=== PATIENT | male | born 1950 | race Caucasian/White ===

== ENCOUNTER 2019-11-12 07:29 | Outpatient (CLI) | payer MEDICARE, OTHER, SELFPAY ==
[2019-11-12 07:58] LABS: Absolute Basophil Count 0.01 k/cumm (0.0-0.2); Absolute Eosinophil Count 0.08 k/cumm (0.0-0.7); Absolute Lymphocyte Count 1.48 k/cumm (1.2-3.4); Absolute Monocyte Count 0.23 k/cumm (0.11-0.7); Basophils % 0.5; Eosinophils % 4.4; HCT 31.1 % (40.0-50.0); HGB 9.7 g/dL (13.5-17.5); Lymphocytes % 81.3; Mean Corp. HGB Concentration 31.2 g/dL (32.0-36.0); Mean Corpuscular Hemoglobin 27.6 pg (27.0-33.0); Mean Corpuscular Volume 88.4 fL (80-95); Mean Platelet Volume 8.5 fL (8.0-11.0); Monocytes % 12.6; Neutrophils % 1.2; Platelet Count 237 x1000/uL (130-400); RBC 3.52 m/cumm (4.50-6.00)
[2019-11-12 08:13] LABS: ALT 25 U/L (16-63); AST 16 U/L (15-37); Albumin 2.9 g/dL (3.4-5.0); Alkaline Phosphatase 74 U/L (46-116); Anion Gap 6.6 mmol/L (3-11); BUN 10 mg/dL (7-18); Bilirubin, Total 0.2 mg/dL (0.2-1.0); CO2 29.4 mmol/L (21.0-32.0); CREATININE 1.01 mg/dL (0.70-1.30); Calcium 9.4 mg/dL (8.5-10.1); Chloride 105 mmol/L (98-107); Glucose 97 mg/dL (74-106); Magnesium 1.8 mg/dL (1.8-2.4); PHOSPHORUS 3.4 mg/dL (2.6-4.7); Sodium 141 mmol/L (136-145); Total Protein 8.1 g/dL (6.4-8.2); Uric Acid 3.5 mg/dL (3.5-7.2)
[2019-11-12 08:23] LABS: Absolute Neutrophil Count 0.02 k/cumm (1.2-6.7)
[2019-11-12 08:24] LABS: Anisocytosis 1+; Polychromasia Present; White Blood Cell Count 1.82 k/cumm (4.4-10.8)
[2019-11-12 08:25] LABS: Diff Comment Agrees w/ Instrument
[2019-11-12 08:52] LABS: ESR 110 mm/hr (1-20)
== END 2019-11-12 07:49 ==
PROVIDERS: PCP Family Medicine; Visit Provider Internal Medicine Hematology & Oncology
DX: C81.18 Nodular sclerosis Hodgkin lymphoma, lymph nodes of multiple sites (principal)
CPT/HCPCS: 36415; 80053; 85652; 83735; 84100; 84550; 85025

== ENCOUNTER 2019-12-17 01:23 | Outpatient (RCR) | payer MEDICARE, OTHER, SELFPAY ==
[2019-12-03 08:05] LABS: HCT 30.1 % (40.0-50.0); HGB 9.5 g/dL (13.5-17.5); Mean Corp. HGB Concentration 31.6 g/dL (32.0-36.0); Mean Corpuscular Hemoglobin 28.4 pg (27.0-33.0); Mean Corpuscular Volume 89.9 fL (80-95); Mean Platelet Volume 8.8 fL (8.0-11.0); Platelet Count 257 x1000/uL (130-400); RBC 3.35 m/cumm (4.50-6.00); RBC Distribution Width 21.9 % (11.8-14.1); White Blood Cell Count 5.94 k/cumm (4.4-10.8)
[2019-12-03] MEDS: Normal Saline Flush 10 ML SYR IVP (08:07)
[2019-12-03 08:24] LABS: ALT 23 U/L (16-63); AST 26 U/L (15-37); Albumin 3.2 g/dL (3.4-5.0); Alkaline Phosphatase 61 U/L (46-116); Anion Gap 8.5 mmol/L (3-11); BUN 15 mg/dL (7-18); Bilirubin, Total 0.3 mg/dL (0.2-1.0); CO2 26.5 mmol/L (21.0-32.0); CREATININE 1.28 mg/dL (0.70-1.30); Calcium 9.4 mg/dL (8.5-10.1); Chloride 102 mmol/L (98-107); Estimated GFR 55.89 (mL/min/1.73m2); Glucose 97 mg/dL (74-106); Potassium 4.2 mmol/L (3.5-5.1); Sodium 137 mmol/L (136-145); Total Protein 8.4 g/dL (6.4-8.2)
[2019-12-03 08:28] LABS: Absolute Eosinophil Count 0.06 k/cumm (0.0-0.7); Absolute Lymphocyte Count 1.66 k/cumm (1.2-3.4); Absolute Monocyte Count 0.95 k/cumm (0.11-0.7); Absolute Neutrophil Count 3.03 k/cumm (1.2-6.7)
[2019-12-03 08:29] LABS: Anisocytosis 2+; Diff Comment Manual Differential; Hypochromasia 1+; Microcytosis 1+; Polychromasia Present
[2019-12-03 09:04] LABS: ESR 113 mm/hr (1-20)
[2019-12-17] MEDS: Normal Saline Flush 10 ML SYR IVP (08:56)
[2019-12-17 09:04] LABS: Abs Immature Grans 0.22 k/cumm (0.0-0.09); HCT 29.8 % (40.0-50.0); HGB 9.5 g/dL (13.5-17.5); Mean Corp. HGB Concentration 31.9 g/dL (32.0-36.0); Mean Corpuscular Hemoglobin 29.5 pg (27.0-33.0); Mean Corpuscular Volume 92.5 fL (80-95); Mean Platelet Volume 9.6 fL (8.0-11.0); Platelet Count 271 x1000/uL (130-400); RBC 3.22 m/cumm (4.50-6.00); RBC Distribution Width 22.8 % (11.8-14.1); White Blood Cell Count 5.72 k/cumm (4.4-10.8)
[2019-12-17 09:30] LABS: ALT 25 U/L (16-63); AST 19 U/L (15-37); Albumin 3.3 g/dL (3.4-5.0); Alkaline Phosphatase 59 U/L (46-116); Anion Gap 6.6 mmol/L (3-11); BUN 18 mg/dL (7-18); Bilirubin, Total 0.2 mg/dL (0.2-1.0); CO2 28.4 mmol/L (21.0-32.0); CREATININE 1.07 mg/dL (0.70-1.30); Calcium 9.3 mg/dL (8.5-10.1); Chloride 105 mmol/L (98-107); Glucose 107 mg/dL (74-106); Potassium 3.9 mmol/L (3.5-5.1); Sodium 140 mmol/L (136-145)
[2019-12-17 09:34] LABS: Absolute Eosinophil Count 0.23 k/cumm (0.0-0.7); Absolute Neutrophil Count 3.26 k/cumm (1.2-6.7)
[2019-12-17 09:36] LABS: Anisocytosis 2+; Diff Comment Manual Differential; Hypochromasia 1+; Polychromasia Present
[2019-12-17 09:37] LABS: Poikilocytes 2+
== END 2019-12-22 23:59 | disposition home or self-care (01) ==
LOC: INF 01:23
PROVIDERS: PCP Family Medicine; Visit Provider Internal Medicine Hematology & Oncology
DX: C81.18 Nodular sclerosis Hodgkin lymphoma, lymph nodes of multiple sites (principal); Z45.2 Encounter for adjustment and management of vascular access device
CPT/HCPCS: 36591; 80053; 85652; 85025

== ENCOUNTER 2020-01-14 00:54 | Outpatient (RCR) | payer MEDICARE, OTHER, SELFPAY ==
[2019-12-31] MEDS: Normal Saline Flush 10 ML SYR IVP (09:03)
[2019-12-31 09:19] LABS: ALT 23 U/L (16-63); AST 20 U/L (15-37); Alkaline Phosphatase 52 U/L (46-116); BUN 15 mg/dL (7-18); Bilirubin, Total 0.2 mg/dL (0.2-1.0); CREATININE 0.99 mg/dL (0.70-1.30); Calcium 8.7 mg/dL (8.5-10.1); Chloride 108 mmol/L (98-107); Glucose 150 mg/dL (74-106); Potassium 3.6 mmol/L (3.5-5.1); Sodium 142 mmol/L (136-145); Total Protein 7.2 g/dL (6.4-8.2)
[2019-12-31 09:30] LABS: Abs Immature Grans 0.23 k/cumm (0.0-0.09); HGB 9.1 g/dL (13.5-17.5); Mean Corp. HGB Concentration 32.5 g/dL (32.0-36.0); Mean Corpuscular Hemoglobin 30.2 pg (27.0-33.0); Mean Platelet Volume 9.7 fL (8.0-11.0); Platelet Count 244 x1000/uL (130-400); RBC 3.01 m/cumm (4.50-6.00); RBC Distribution Width 22.9 % (11.8-14.1)
[2019-12-31 09:33] LABS: Absolute Lymphocyte Count 1.48 k/cumm (1.2-3.4); Atypical Lymphocytes % 1; Diff Comment Manual Differential
[2019-12-31 09:34] LABS: Anisocytosis 2+; Hypochromasia 1+; Macrocytosis 1+; Microcytosis 1+; Poikilocytes 1+; Polychromasia Present
[2019-12-31 10:29] LABS: ESR 60 mm/hr (1-20)
[2020-01-14] MEDS: Normal Saline Flush 10 ML SYR IVP (09:08)
[2020-01-14 09:14] LABS: Abs Immature Grans 0.46 k/cumm (0.0-0.09); Absolute Eosinophil Count 0.08 k/cumm (0.0-0.7); HCT 29.5 % (40.0-50.0); HGB 9.4 g/dL (13.5-17.5); Mean Corp. HGB Concentration 31.9 g/dL (32.0-36.0); Mean Corpuscular Hemoglobin 30.1 pg (27.0-33.0); Mean Corpuscular Volume 94.6 fL (80-95); Mean Platelet Volume 9.6 fL (8.0-11.0); Platelet Count 259 x1000/uL (130-400); RBC 3.12 m/cumm (4.50-6.00); RBC Distribution Width 22.8 % (11.8-14.1); White Blood Cell Count 7.76 k/cumm (4.4-10.8)
[2020-01-14 09:26] LABS: ALT 24 U/L (16-63); AST 21 U/L (15-37); Albumin 3.3 g/dL (3.4-5.0); Alkaline Phosphatase 55 U/L (46-116); Anion Gap 6.6 mmol/L (3-11); BUN 14 mg/dL (7-18); Bilirubin, Total 0.3 mg/dL (0.2-1.0); CO2 27.4 mmol/L (21.0-32.0); CREATININE 0.97 mg/dL (0.70-1.30); Calcium 8.9 mg/dL (8.5-10.1); Chloride 105 mmol/L (98-107); Glucose 95 mg/dL (74-106); Potassium 3.8 mmol/L (3.5-5.1); Sodium 139 mmol/L (136-145); Total Protein 7.5 g/dL (6.4-8.2)
[2020-01-14 09:35] LABS: Absolute Lymphocyte Count 1.47 k/cumm (1.2-3.4); Absolute Monocyte Count 1.09 k/cumm (0.11-0.7); Absolute Neutrophil Count 4.73 k/cumm (1.2-6.7); Anisocytosis 2+; Diff Comment Manual Differential; Nucleated RBC 1 /100WBC
[2020-01-14 09:36] LABS: Polychromasia Present
== END 2020-01-21 23:59 | disposition home or self-care (01) ==
LOC: INF 00:54
PROVIDERS: PCP Family Medicine; Visit Provider Internal Medicine Hematology & Oncology
DX: C81.18 Nodular sclerosis Hodgkin lymphoma, lymph nodes of multiple sites (principal); Z45.2 Encounter for adjustment and management of vascular access device
CPT/HCPCS: 36591; 80053; 85652; 85025

== ENCOUNTER 2020-02-11 03:15 | Outpatient (RCR) | payer MEDICARE, OTHER, SELFPAY ==
[2020-01-28 09:32] LABS: Abs Immature Grans 0.04 k/cumm (0.0-0.09); Absolute Basophil Count 0.04 k/cumm (0.0-0.2); Absolute Eosinophil Count 0.09 k/cumm (0.0-0.7); Absolute Lymphocyte Count 1.35 k/cumm (1.2-3.4); Absolute Monocyte Count 0.69 k/cumm (0.11-0.7); Absolute Neutrophil Count 1.27 k/cumm (1.2-6.7); Basophils % 1.1; Eosinophils % 2.6; HCT 28.4 % (40.0-50.0); HGB 9.2 g/dL (13.5-17.5); Immature Grans % 1.1 %; Lymphocytes % 38.8; Mean Corp. HGB Concentration 32.4 g/dL (32.0-36.0); Mean Corpuscular Hemoglobin 31.2 pg (27.0-33.0); Mean Corpuscular Volume 96.3 fL (80-95); Mean Platelet Volume 8.9 fL (8.0-11.0); Monocytes % 19.8; Neutrophils % 36.6; Platelet Count 252 x1000/uL (130-400); RBC 2.95 m/cumm (4.50-6.00); RBC Distribution Width 22.3 % (11.8-14.1); White Blood Cell Count 3.48 k/cumm (4.4-10.8)
[2020-01-28 09:47] LABS: ALT 22 U/L (16-63); AST 20 U/L (15-37); Albumin 3.3 g/dL (3.4-5.0); Alkaline Phosphatase 44 U/L (46-116); Anion Gap 7.3 mmol/L (3-11); BUN 16 mg/dL (7-18); Bilirubin, Total 0.3 mg/dL (0.2-1.0); CO2 26.7 mmol/L (21.0-32.0); CREATININE 0.97 mg/dL (0.70-1.30); Calcium 9.3 mg/dL (8.5-10.1); Chloride 104 mmol/L (98-107); Glucose 99 mg/dL (74-106); Sodium 138 mmol/L (136-145); Total Protein 7.5 g/dL (6.4-8.2)
[2020-01-28 10:09] LABS: ESR 71 mm/hr (1-20)
[2020-01-28] MEDS: Normal Saline Flush 10 ML SYR IVP (11:26)
[2020-02-11] MEDS: Normal Saline Flush 10 ML SYR IVP (09:06)
[2020-02-11 09:14] LABS: Abs Immature Grans 0.05 k/cumm (0.0-0.09); Absolute Basophil Count 0.03 k/cumm (0.0-0.2); Absolute Eosinophil Count 0.07 k/cumm (0.0-0.7); Absolute Lymphocyte Count 1.55 k/cumm (1.2-3.4); Absolute Monocyte Count 0.76 k/cumm (0.11-0.7); Absolute Neutrophil Count 3.41 k/cumm (1.2-6.7); Basophils % 0.5; Eosinophils % 1.2; HCT 30.2 % (40.0-50.0); HGB 9.7 g/dL (13.5-17.5); Immature Grans % 0.9 %; Lymphocytes % 26.4; Mean Corp. HGB Concentration 32.1 g/dL (32.0-36.0); Mean Corpuscular Hemoglobin 31.2 pg (27.0-33.0); Mean Corpuscular Volume 97.1 fL (80-95); Mean Platelet Volume 9.9 fL (8.0-11.0); Monocytes % 12.9; Neutrophils % 58.1; Platelet Count 251 x1000/uL (130-400); RBC 3.11 m/cumm (4.50-6.00); RBC Distribution Width 20.9 % (11.8-14.1); White Blood Cell Count 5.87 k/cumm (4.4-10.8)
[2020-02-11 09:30] LABS: Anisocytosis 2+; Diff Comment RBC Morph Reviewed; Polychromasia Present
[2020-02-11 09:31] LABS: Poikilocytes 1+
[2020-02-11 09:32] LABS: ALT 23 U/L (16-63); AST 22 U/L (15-37); Albumin 3.4 g/dL (3.4-5.0); Alkaline Phosphatase 54 U/L (46-116); Anion Gap 8.1 mmol/L (3-11); BUN 15 mg/dL (7-18); Bilirubin, Total 0.3 mg/dL (0.2-1.0); CO2 25.9 mmol/L (21.0-32.0); CREATININE 1.15 mg/dL (0.70-1.30); Calcium 9.3 mg/dL (8.5-10.1); Chloride 104 mmol/L (98-107); Glucose 104 mg/dL (74-106); Potassium 4.1 mmol/L (3.5-5.1); Sodium 138 mmol/L (136-145); Total Protein 7.6 g/dL (6.4-8.2)
== END 2020-02-21 23:59 | disposition home or self-care (01) ==
LOC: INF 03:15
PROVIDERS: PCP Family Medicine; Visit Provider Internal Medicine Hematology & Oncology
DX: C81.98 Hodgkin lymphoma, unspecified, lymph nodes of multiple sites (principal); Z45.2 Encounter for adjustment and management of vascular access device
CPT/HCPCS: 36591; 80053; 85652; 85025

== ENCOUNTER 2020-03-10 03:52 | Outpatient (RCR) | payer MEDICARE, OTHER, SELFPAY ==
[2020-02-25] MEDS: Normal Saline Flush 10 ML SYR IVP (10:20)
[2020-02-25 10:28] LABS: Abs Immature Grans 0.04 k/cumm (0.0-0.09); Absolute Basophil Count 0.01 k/cumm (0.0-0.2); Absolute Eosinophil Count 0.08 k/cumm (0.0-0.7); Absolute Lymphocyte Count 1.27 k/cumm (1.2-3.4); Absolute Monocyte Count 0.63 k/cumm (0.11-0.7); Absolute Neutrophil Count 2.54 k/cumm (1.2-6.7); Basophils % 0.2; Eosinophils % 1.8; HCT 28.9 % (40.0-50.0); HGB 9.3 g/dL (13.5-17.5); Immature Grans % 0.9 %; Lymphocytes % 27.8; Mean Corp. HGB Concentration 32.2 g/dL (32.0-36.0); Mean Corpuscular Hemoglobin 31.7 pg (27.0-33.0); Mean Corpuscular Volume 98.6 fL (80-95); Mean Platelet Volume 9.4 fL (8.0-11.0); Monocytes % 13.8; Neutrophils % 55.5; Platelet Count 249 x1000/uL (130-400); RBC 2.93 m/cumm (4.50-6.00); White Blood Cell Count 4.57 k/cumm (4.4-10.8)
[2020-02-25 10:44] LABS: ALT 21 U/L (16-63); AST 19 U/L (15-37); Albumin 3.3 g/dL (3.4-5.0); Alkaline Phosphatase 53 U/L (46-116); Anion Gap 5.2 mmol/L (3-11); BUN 20 mg/dL (7-18); Bilirubin, Total 0.3 mg/dL (0.2-1.0); CO2 26.8 mmol/L (21.0-32.0); CREATININE 1.17 mg/dL (0.70-1.30); Chloride 104 mmol/L (98-107); Glucose 122 mg/dL (74-106); Potassium 3.9 mmol/L (3.5-5.1); Sodium 136 mmol/L (136-145); Total Protein 7.4 g/dL (6.4-8.2)
[2020-02-25 11:04] LABS: ESR 70 mm/hr (1-20)
[2020-03-10] MEDS: Normal Saline Flush 10 ML SYR IVP (07:45)
[2020-03-10 08:24] LABS: Abs Immature Grans 0.13 k/cumm (0.0-0.09); Absolute Basophil Count 0.02 k/cumm (0.0-0.2); Absolute Eosinophil Count 0.05 k/cumm (0.0-0.7); Absolute Monocyte Count 0.81 k/cumm (0.11-0.7); Absolute Neutrophil Count 3.92 k/cumm (1.2-6.7); Basophils % 0.3; Eosinophils % 0.8; HCT 28.9 % (40.0-50.0); HGB 9.1 g/dL (13.5-17.5); Immature Grans % 2.1 %; Lymphocytes % 20.9; Mean Corp. HGB Concentration 31.5 g/dL (32.0-36.0); Mean Corpuscular Hemoglobin 31.5 pg (27.0-33.0); Neutrophils % 62.9; Platelet Count 254 x1000/uL (130-400); RBC 2.89 m/cumm (4.50-6.00); RBC Distribution Width 19.1 % (11.8-14.1); White Blood Cell Count 6.23 k/cumm (4.4-10.8)
[2020-03-10 08:36] LABS: ALT 21 U/L (16-63); AST 20 U/L (15-37); Albumin 3.4 g/dL (3.4-5.0); Alkaline Phosphatase 58 U/L (46-116); BUN 13 mg/dL (7-18); Bilirubin, Total 0.3 mg/dL (0.2-1.0); Calcium 9.2 mg/dL (8.5-10.1); Chloride 105 mmol/L (98-107); Glucose 104 mg/dL (74-106); Potassium 3.7 mmol/L (3.5-5.1); Sodium 140 mmol/L (136-145); Total Protein 7.4 g/dL (6.4-8.2)
[2020-03-10 08:39] LABS: Anisocytosis 2+; Diff Comment RBC Morph Reviewed; Hypochromasia 1+; Polychromasia Present
[2020-03-10 08:40] LABS: Poikilocytes 1+
== END 2020-03-22 23:59 | disposition home or self-care (01) ==
LOC: INF 03:52
PROVIDERS: PCP Family Medicine; Visit Provider Internal Medicine Hematology & Oncology
DX: C81.18 Nodular sclerosis Hodgkin lymphoma, lymph nodes of multiple sites (principal); Z45.2 Encounter for adjustment and management of vascular access device
CPT/HCPCS: 36591; 80053; 85652; 85025

== ENCOUNTER 2020-04-07 01:39 | Outpatient (RCR) | payer MEDICARE, OTHER, SELFPAY ==
[2020-03-24] MEDS: Normal Saline Flush 10 ML SYR IVP (07:50)
[2020-03-24 07:57] LABS: HCT 26.1 % (40.0-50.0); HGB 8.3 g/dL (13.5-17.5); Mean Corp. HGB Concentration 31.8 g/dL (32.0-36.0); Mean Corpuscular Hemoglobin 32.2 pg (27.0-33.0); Mean Corpuscular Volume 101.2 fL (80-95); Mean Platelet Volume 9.4 fL (8.0-11.0); Platelet Count 222 x1000/uL (130-400); RBC 2.58 m/cumm (4.50-6.00); RBC Distribution Width 18.9 % (11.8-14.1); White Blood Cell Count 6.39 k/cumm (4.4-10.8)
[2020-03-24 08:10] LABS: ALT 18 U/L (16-63); AST 19 U/L (15-37); Albumin 3.1 g/dL (3.4-5.0); Alkaline Phosphatase 57 U/L (46-116); Anion Gap 8.2 mmol/L (3-11); BUN 10 mg/dL (7-18); Bilirubin, Total 0.3 mg/dL (0.2-1.0); CO2 26.8 mmol/L (21.0-32.0); CREATININE 1.17 mg/dL (0.70-1.30); Calcium 8.7 mg/dL (8.5-10.1); Chloride 105 mmol/L (98-107); Glucose 102 mg/dL (74-106); Potassium 3.7 mmol/L (3.5-5.1); Sodium 140 mmol/L (136-145)
[2020-03-24 08:21] LABS: Absolute Basophil Count 0.06 k/cumm (0.0-0.2); Absolute Lymphocyte Count 1.21 k/cumm (1.2-3.4); Absolute Monocyte Count 0.51 k/cumm (0.11-0.7); Absolute Neutrophil Count 4.41 k/cumm (1.2-6.7); Atypical Lymphocytes % 1
[2020-03-24 08:22] LABS: Anisocytosis 2+; Diff Comment Manual Differential
[2020-03-24 08:23] LABS: Hypochromasia 2+; Macrocytosis 1+; Microcytosis 1+; Poikilocytes 2+; Polychromasia Present
[2020-04-07] MEDS: Normal Saline Flush 10 ML SYR IVP (07:57)
[2020-04-07 08:11] LABS: Abs Immature Grans 0.23 k/cumm (0.0-0.09); HCT 25.3 % (40.0-50.0); HGB 7.8 g/dL (13.5-17.5); Mean Corp. HGB Concentration 30.8 g/dL (32.0-36.0); Mean Corpuscular Hemoglobin 31.1 pg (27.0-33.0); Mean Corpuscular Volume 100.8 fL (80-95); Platelet Count 208 x1000/uL (130-400); RBC 2.51 m/cumm (4.50-6.00); White Blood Cell Count 5.63 k/cumm (4.4-10.8)
[2020-04-07 08:26] LABS: ALT 17 U/L (16-63); AST 20 U/L (15-37); Albumin 3.1 g/dL (3.4-5.0); Alkaline Phosphatase 57 U/L (46-116); Anion Gap 7.7 mmol/L (3-11); BUN 12 mg/dL (7-18); Bilirubin, Total 0.3 mg/dL (0.2-1.0); CO2 26.3 mmol/L (21.0-32.0); CREATININE 1.08 mg/dL (0.70-1.30); Calcium 8.9 mg/dL (8.5-10.1); Chloride 105 mmol/L (98-107); Glucose 103 mg/dL (74-106); Potassium 3.7 mmol/L (3.5-5.1); Sodium 139 mmol/L (136-145); Total Protein 6.9 g/dL (6.4-8.2)
[2020-04-07 08:31] LABS: Absolute Eosinophil Count 0.11 k/cumm (0.0-0.7); Absolute Lymphocyte Count 0.96 k/cumm (1.2-3.4); Absolute Monocyte Count 0.84 k/cumm (0.11-0.7); Absolute Neutrophil Count 3.43 k/cumm (1.2-6.7); Anisocytosis 2+; Diff Comment Manual Differential; Macrocytosis 1+
[2020-04-07 08:32] LABS: Poikilocytes 1+; Polychromasia Present
== END 2020-04-22 23:59 | disposition home or self-care (01) ==
LOC: INF 01:39
PROVIDERS: PCP Family Medicine; Visit Provider Internal Medicine Hematology & Oncology
DX: C81.18 Nodular sclerosis Hodgkin lymphoma, lymph nodes of multiple sites (principal); Z45.2 Encounter for adjustment and management of vascular access device
CPT/HCPCS: 36591; 80053; 85025

== ENCOUNTER 2020-07-14 12:27 | Outpatient (RCR) | payer MEDICARE, OTHER, SELFPAY ==
[2020-07-14] MEDS: Normal Saline Flush 10 ML SYR IVP (12:43)
[2020-07-14] MEDS: Heparin 500 UNITS/5 ML SYRINGE IVP (12:43)
[2020-07-14 12:46] LABS: Abs Immature Grans 0.01 10^3/uL (0.0-0.06); Absolute Basophil Count 0.02 10^3/uL (0.0-0.2); Absolute Eosinophil Count 0.13 10^3/uL (0.0-0.7); Absolute Lymphocyte Count 2.52 10^3/uL (1.2-3.4); Absolute Monocyte Count 0.44 10^3/uL (0.1-0.8); Absolute Neutrophil Count 2.75 10^3/uL (1.2-6.7); Basophils % 0.3; Eosinophils % 2.2; HCT 36.8 % (40.0-50.0); HGB 11.7 g/dL (13.5-17.5); Immature Grans % 0.2; Lymphocytes % 42.9; MCHC 31.8 % (32.0-36.0); MCV 97.4 fL (80-95); MPV 9.1 fL (8.0-11.0); Monocytes % 7.5; Neutrophils % 46.9; Nucleated RBC 0 %; Platelet Count 179 10^3/uL (130-400); RBC 3.78 10^6/uL (4.36-5.78); RDW 15.3 % (11.8-14.1); RDW-SD 55.5 fL; WBC 5.87 10^3/uL (4.4-10.8)
[2020-07-14 13:08] LABS: AST 18 U/L (15-37); Albumin 3.5 g/dL (3.4-5.0); Anion Gap 4.7 mmol/L (3-11); BUN 14 mg/dL (7-18); CO2 28.3 mmol/L (21.0-32.0); CREATININE 1.16 mg/dL (0.70-1.30); Calcium 8.9 mg/dL (8.5-10.1); Chloride 105 mmol/L (98-107); Glucose 95 mg/dL (74-106); Potassium 4.1 mmol/L (3.5-5.1); Sodium 138 mmol/L (136-145)
[2020-07-14 13:22] LABS: ESR 35 mm/hr (1-20)
[2020-07-14 13:43] LABS: ALT 13 U/L (16-63); Alkaline Phosphatase 61 U/L (46-116); Bilirubin, Total 0.3 mg/dL (0.2-1.0); Total Protein 7.9 g/dL (6.4-8.2)
== END 2020-07-23 23:59 | disposition home or self-care (01) ==
LOC: INF 12:27
PROVIDERS: PCP Family Medicine; Visit Provider Internal Medicine Hematology & Oncology
DX: C81.18 Nodular sclerosis Hodgkin lymphoma, lymph nodes of multiple sites (principal)
CPT/HCPCS: 36591; 80053; 85652; 85025

== ENCOUNTER 2020-09-12 01:58 | Outpatient (RCR) | payer MEDICARE, OTHER, SELFPAY | END 2020-09-22 23:59 | disposition home or self-care (01) | LOC: INF 01:58 | PROVIDERS: PCP Family Medicine; Visit Provider Internal Medicine Hematology & Oncology | DX: Z53.9 Procedure and treatment not carried out, unspecified reason (principal) ==

== ENCOUNTER 2020-10-13 09:47 | Outpatient (CLI) | payer MEDICARE, OTHER, SELFPAY ==
[2020-10-13 15:06] LABS: Abs Immature Grans 0.01 10^3/uL (0.0-0.06); Absolute Basophil Count 0.02 10^3/uL (0.0-0.2); Absolute Eosinophil Count 0.07 10^3/uL (0.0-0.7); Absolute Lymphocyte Count 1.97 10^3/uL (1.2-3.4); Absolute Monocyte Count 0.25 10^3/uL (0.1-0.8); Absolute Neutrophil Count 2.54 10^3/uL (1.2-6.7); Basophils % 0.4; Eosinophils % 1.4; HCT 38.4 % (40.0-50.0); HGB 12.7 g/dL (13.5-17.5); Immature Grans % 0.2; Lymphocytes % 40.5; MCH 31.3 pg (27.0-33.0); MCHC 33.1 % (32.0-36.0); MCV 94.6 fL (80-95); Monocytes % 5.1; Neutrophils % 52.4; Nucleated RBC 0 %; Platelet Count 170 10^3/uL (130-400); RBC 4.06 10^6/uL (4.36-5.78); RDW 15.5 % (11.8-14.1); RDW-SD 53.5 fL; WBC 4.86 10^3/uL (4.4-10.8)
[2020-10-13 15:16] LABS: ALT 19 U/L (16-63); AST 17 U/L (15-37); Albumin 3.7 g/dL (3.4-5.0); Alkaline Phosphatase 53 U/L (46-116); Anion Gap 4.8 mmol/L (3-11); BUN 17 mg/dL (7-18); Bilirubin, Total 0.5 mg/dL (0.2-1.0); CO2 27.2 mmol/L (21.0-32.0); CREATININE 1.22 mg/dL (0.70-1.30); Calcium 8.9 mg/dL (8.5-10.1); Chloride 105 mmol/L (98-107); Glucose 140 mg/dL (74-106); Potassium 3.7 mmol/L (3.5-5.1); Sodium 137 mmol/L (136-145)
[2020-10-13 22:21] LABS: ESR 31 mm/hr (1-20)
== END 2020-10-13 10:07 ==
PROVIDERS: PCP Family Medicine; Visit Provider Internal Medicine Hematology & Oncology
DX: C81.18 Nodular sclerosis Hodgkin lymphoma, lymph nodes of multiple sites (principal)
CPT/HCPCS: 36415; 80053; 85652; 85025

== ENCOUNTER 2021-02-16 02:37 | Outpatient (CLI) | payer MEDICARE, OTHER, SELFPAY ==
[2021-02-16 13:57] LABS: ESR 15 mm/hr (0-20)
[2021-02-16 13:58] LABS: Abs Immature Grans 0.01 10^3/uL (0.0-0.06); Absolute Basophil Count 0.03 10^3/uL (0.0-0.2); Absolute Eosinophil Count 0.07 10^3/uL (0.0-0.7); Absolute Lymphocyte Count 2.41 10^3/uL (1.2-3.4); Absolute Monocyte Count 0.43 10^3/uL (0.1-0.8); Absolute Neutrophil Count 2.56 10^3/uL (1.2-6.7); Basophils % 0.5; Eosinophils % 1.3; HGB 14.3 g/dL (13.5-17.5); Immature Grans % 0.2; Lymphocytes % 43.7; MCH 31.1 pg (27.0-33.0); MCHC 33.3 % (32.0-36.0); MCV 93.5 fL (80-95); MPV 9.2 fL (8.0-11.0); Monocytes % 7.8; Neutrophils % 46.5; Nucleated RBC 0 %; Platelet Count 189 10^3/uL (130-400); RDW-SD 52.2 fL; WBC 5.51 10^3/uL (4.4-10.8)
[2021-02-16 14:12] LABS: ALT 20 U/L (16-63); AST 17 U/L (15-37); Albumin 3.9 g/dL (3.4-5.0); Alkaline Phosphatase 66 U/L (46-116); Anion Gap 7.1 mmol/L (3-11); BUN 14 mg/dL (7-18); Bilirubin, Total 0.6 mg/dL (0.2-1.0); CO2 27.9 mmol/L (21.0-32.0); CREATININE 1.1 mg/dL (0.70-1.30); Calcium 9.3 mg/dL (8.5-10.1); Chloride 106 mmol/L (98-107); Glucose 110 mg/dL (74-106); Sodium 141 mmol/L (136-145); Total Protein 8.2 g/dL (6.4-8.2)
== END 2021-02-16 02:38 | disposition home or self-care (01) ==
PROVIDERS: PCP Family Medicine; Visit Provider Internal Medicine Hematology & Oncology
DX: C81.18 Nodular sclerosis Hodgkin lymphoma, lymph nodes of multiple sites (principal)
CPT/HCPCS: 36415; 80053; 85652; 85025

== ENCOUNTER 2021-06-22 09:09 | Outpatient (CLI) | payer MEDICARE, OTHER, SELFPAY ==
[2021-06-22 12:17] LABS: Abs Immature Grans 0.01 10^3/uL (0.0-0.06); Absolute Basophil Count 0.03 10^3/uL (0.0-0.2); Absolute Lymphocyte Count 3.24 10^3/uL (1.2-3.4); Absolute Monocyte Count 0.57 10^3/uL (0.1-0.8); Absolute Neutrophil Count 2.38 10^3/uL (1.2-6.7); Basophils % 0.5; ESR 12 mm/hr (0-20); Eosinophils % 1.6; HCT 43.5 % (40.0-50.0); HGB 14.5 g/dL (13.5-17.5); Immature Grans % 0.2; Lymphocytes % 51.2; MCH 31.5 pg (27.0-33.0); MCHC 33.3 % (32.0-36.0); MCV 94.6 fL (80-95); MPV 9.1 fL (8.0-11.0); Neutrophils % 37.5; Nucleated RBC 0 %; Platelet Count 168 10^3/uL (130-400); RDW 14.5 % (11.8-14.1); RDW-SD 50.5 fL; WBC 6.33 10^3/uL (4.4-10.8)
[2021-06-22 12:30] LABS: ALT 22 U/L (16-63); AST 20 U/L (15-37); Albumin 4.1 g/dL (3.4-5.0); Alkaline Phosphatase 65 U/L (46-116); BUN 19 mg/dL (7-18); Bilirubin, Total 0.7 mg/dL (0.2-1.0); Calcium 9.4 mg/dL (8.5-10.1); Chloride 105 mmol/L (98-107); Glucose 92 mg/dL (74-106); Potassium 4.3 mmol/L (3.5-5.1); Sodium 140 mmol/L (136-145); Total Protein 8.6 g/dL (6.4-8.2)
== END 2021-06-22 09:10 | disposition home or self-care (01) ==
LOC: LBO 09:13
PROVIDERS: PCP Family Medicine; Visit Provider Internal Medicine Hematology & Oncology
DX: C81.18 Nodular sclerosis Hodgkin lymphoma, lymph nodes of multiple sites (principal)
CPT/HCPCS: 36415; 80053; 85652; 85025

== ENCOUNTER 2021-10-26 03:04 | Outpatient (CLI) | payer MEDICARE, OTHER, SELFPAY ==
[2021-10-26 14:06] LABS: ESR 10 mm/hr (0-20)
[2021-10-26 14:10] LABS: Abs Immature Grans 0.01 10^3/uL (0.0-0.06); Absolute Basophil Count 0.03 10^3/uL (0.0-0.2); Absolute Eosinophil Count 0.09 10^3/uL (0.0-0.7); Absolute Lymphocyte Count 2.94 10^3/uL (1.2-3.4); Absolute Monocyte Count 0.47 10^3/uL (0.1-0.8); Absolute Neutrophil Count 2.35 10^3/uL (1.2-6.7); Basophils % 0.5; Eosinophils % 1.5; HCT 48.8 % (40.0-50.0); Immature Grans % 0.2; Lymphocytes % 49.9; MCH 31.1 pg (27.0-33.0); MCHC 32.8 % (32.0-36.0); MCV 94.9 fL (80-95); MPV 9.7 fL (8.0-11.0); Neutrophils % 39.9; Nucleated RBC 0 %; Platelet Count 166 10^3/uL (130-400); RBC 5.14 10^6/uL (4.36-5.78); RDW 14.1 % (11.8-14.1); RDW-SD 49.5 fL; WBC 5.89 10^3/uL (4.4-10.8)
[2021-10-26 14:20] LABS: ALT 17 U/L (16-63); AST 14 U/L (15-37); Alkaline Phosphatase 67 U/L (46-116); BUN 24 mg/dL (7-18); Bilirubin, Total 0.4 mg/dL (0.2-1.0); CREATININE 1.1 mg/dL (0.70-1.30); Calcium 9.5 mg/dL (8.5-10.1); Chloride 103 mmol/L (98-107); Glucose 114 mg/dL (74-106); Potassium 3.9 mmol/L (3.5-5.1); Sodium 138 mmol/L (136-145); Total Protein 8.8 g/dL (6.4-8.2)
== END 2021-10-26 03:05 | disposition home or self-care (01) ==
LOC: LBO 03:04
PROVIDERS: PCP Family Medicine; Visit Provider Internal Medicine Hematology & Oncology
DX: C81.18 Nodular sclerosis Hodgkin lymphoma, lymph nodes of multiple sites (principal)
CPT/HCPCS: 36415; 80053; 85652; 85025

== ENCOUNTER 2022-03-01 02:09 | Outpatient (RCR) | payer MEDICARE, OTHER, SELFPAY ==
[2022-03-01 09:53] LABS: Abs Immature Grans 0.01 10^3/uL (0.0-0.06); Absolute Basophil Count 0.02 10^3/uL (0.0-0.2); Absolute Eosinophil Count 0.14 10^3/uL (0.0-0.7); Absolute Lymphocyte Count 2.81 10^3/uL (1.2-3.4); Absolute Neutrophil Count 2.57 10^3/uL (1.2-6.7); Basophils % 0.3; Eosinophils % 2.3; HGB 13.1 g/dL (13.5-17.5); Immature Grans % 0.2; Lymphocytes % 46.4; MCH 31.2 pg (27.0-33.0); MCHC 32.8 % (32.0-36.0); MCV 95 fL (80-95); MPV 8.9 fL (8.0-11.0); Monocytes % 8.3; Neutrophils % 42.5; Platelet Count 281 10^3/uL (130-400); RDW 14.2 % (11.8-14.1); RDW-SD 49.1 fL; WBC 6.05 10^3/uL (4.4-10.8)
[2022-03-01 09:57] LABS: ESR 63 mm/hr (0-20)
[2022-03-01 10:09] LABS: ALT 17 U/L (16-63); AST 18 U/L (15-37); Albumin 3.8 g/dL (3.4-5.0); Alkaline Phosphatase 88 U/L (46-116); Anion Gap 8.7 mmol/L (3-11); BUN 20 mg/dL (7-18); Bilirubin, Total 0.6 mg/dL (0.2-1.0); CO2 26.3 mmol/L (21.0-32.0); CREATININE 0.9 mg/dL (0.70-1.30); Calcium 9.5 mg/dL (8.5-10.1); Chloride 104 mmol/L (98-107); Glucose 104 mg/dL (74-106); Potassium 3.9 mmol/L (3.5-5.1); Sodium 139 mmol/L (136-145); Total Protein 8.4 g/dL (6.4-8.2)
[2022-03-02 12:35] LABS: Albumin 53.9 % (55.8-66.1); Albumin g/dL 4.2 g/dL (3.6-5.2); Total Protein 7.7 g/dL (6.3-8.2)
== END 2022-03-22 23:59 | disposition home or self-care (01) ==
LOC: INF 02:09
PROVIDERS: PCP Family Medicine; Visit Provider Internal Medicine Hematology & Oncology
DX: C81.18 Nodular sclerosis Hodgkin lymphoma, lymph nodes of multiple sites (principal)
CPT/HCPCS: 36415; 80053; 85652; 84165; 85025

== ENCOUNTER 2022-07-05 02:41 | Outpatient (CLI) | payer MEDICARE, OTHER, SELFPAY ==
[2022-07-05 10:48] LABS: ESR 12 mm/hr (0-20)
[2022-07-05 10:49] LABS: Abs Immature Grans 0.02 10^3/uL (0.0-0.06); Absolute Basophil Count 0.03 10^3/uL (0.0-0.2); Absolute Eosinophil Count 0.05 10^3/uL (0.0-0.7); Absolute Lymphocyte Count 2.41 10^3/uL (1.2-3.4); Absolute Monocyte Count 0.47 10^3/uL (0.1-0.8); Absolute Neutrophil Count 2.26 10^3/uL (1.2-6.7); Basophils % 0.6; HCT 42.7 % (40.0-50.0); HGB 13.9 g/dL (13.5-17.5); Immature Grans % 0.4; MCH 30.5 pg (27.0-33.0); MCHC 32.6 % (32.0-36.0); MCV 94 fL (80-95); MPV 9.6 fL (8.0-11.0); Platelet Count 158 10^3/uL (130-400); RBC 4.56 10^6/uL (4.36-5.78); RDW 15.6 % (11.8-14.1); RDW-SD 53.8 fL; WBC 5.24 10^3/uL (4.4-10.8)
[2022-07-05 11:19] LABS: ALT 19 U/L (16-63); AST 18 U/L (15-37); Albumin 3.8 g/dL (3.4-5.0); Alkaline Phosphatase 71 U/L (46-116); Anion Gap 5.3 mmol/L (3-11); BUN 21 mg/dL (7-18); Bilirubin, Total 0.4 mg/dL (0.2-1.0); CO2 28.7 mmol/L (21.0-32.0); CREATININE 1.1 mg/dL (0.70-1.30); Calcium 9.1 mg/dL (8.5-10.1); Chloride 107 mmol/L (98-107); Estimated GFR 71.77 (mL/min/1.73m2); Glucose 106 mg/dL (74-106); Potassium 4.2 mmol/L (3.5-5.1); Sodium 141 mmol/L (136-145)
[2022-07-06 12:47] LABS: Albumin 56.2 % (55.8-66.1); Albumin g/dL 3.9 g/dL (3.6-5.2); Total Protein 6.9 g/dL (6.3-8.2)
== END 2022-07-05 02:42 | disposition home or self-care (01) ==
LOC: LBO 02:41
PROVIDERS: PCP Family Medicine; Visit Provider Internal Medicine Hematology & Oncology
DX: C81.18 Nodular sclerosis Hodgkin lymphoma, lymph nodes of multiple sites (principal)
CPT/HCPCS: 36415; 80053; 85652; 84165; 85025

== ENCOUNTER 2023-01-10 03:24 | Outpatient (CLI) | payer MEDICARE, OTHER, SELFPAY ==
[2023-01-10 09:17] LABS: Abs Immature Grans 0.01 10^3/uL (0.0-0.06); Absolute Basophil Count 0.03 10^3/uL (0.0-0.2); Absolute Eosinophil Count 0.11 10^3/uL (0.0-0.7); Absolute Lymphocyte Count 2.93 10^3/uL (1.2-3.4); Absolute Monocyte Count 0.44 10^3/uL (0.1-0.8); Absolute Neutrophil Count 2.52 10^3/uL (1.2-6.7); Basophils % 0.5; Eosinophils % 1.8; HCT 44.6 % (40.0-50.0); HGB 14.6 g/dL (13.5-17.5); Immature Grans % 0.2; Lymphocytes % 48.5; MCH 31.1 pg (27.0-33.0); MCHC 32.7 % (32.0-36.0); MCV 95 fL (80-95); MPV 9.3 fL (8.0-11.0); Monocytes % 7.3; Neutrophils % 41.7; Platelet Count 175 10^3/uL (130-400); RDW 14.6 % (11.8-14.1); RDW-SD 51.2 fL; WBC 6.04 10^3/uL (4.4-10.8)
[2023-01-10 09:21] LABS: ESR 23 mm/hr (0-20)
[2023-01-10 09:30] LABS: ALT 21 U/L (16-63); AST 18 U/L (15-37); Albumin 3.7 g/dL (3.4-5.0); Alkaline Phosphatase 78 U/L (46-116); Anion Gap 6.3 mmol/L (3-11); BUN 17 mg/dL (7-18); Bilirubin, Total 0.5 mg/dL (0.2-1.0); CO2 27.7 mmol/L (21.0-32.0); CREATININE 1.2 mg/dL (0.70-1.30); Calcium 9.4 mg/dL (8.5-10.1); Chloride 105 mmol/L (98-107); Estimated GFR 64.65 (mL/min/1.73m2); Glucose 118 mg/dL (74-106); Potassium 4.4 mmol/L (3.5-5.1); Sodium 139 mmol/L (136-145); Total Protein 8.2 g/dL (6.4-8.2)
== END 2023-01-10 03:25 | disposition home or self-care (01) ==
LOC: LBO 03:24
PROVIDERS: PCP Family Medicine; Visit Provider Internal Medicine Hematology & Oncology
DX: C81.18 Nodular sclerosis Hodgkin lymphoma, lymph nodes of multiple sites (principal)
CPT/HCPCS: 36415; 80053; 85652; 85025

== ENCOUNTER 2023-07-18 03:57 | Outpatient (CLI) | payer MEDICARE, OTHER, SELFPAY ==
[2023-07-18 09:39] LABS: Abs Immature Grans 0.01 10^3/uL (0.0-0.06); Absolute Basophil Count 0.03 10^3/uL (0.0-0.2); Absolute Eosinophil Count 0.09 10^3/uL (0.0-0.7); Absolute Lymphocyte Count 2.84 10^3/uL (1.2-3.4); Absolute Monocyte Count 0.48 10^3/uL (0.1-0.8); Absolute Neutrophil Count 2.48 10^3/uL (1.2-6.7); Basophils % 0.5; Eosinophils % 1.5; HCT 44.8 % (40.0-50.0); HGB 15.1 g/dL (13.5-17.5); Immature Grans % 0.2; Lymphocytes % 47.9; MCH 32.1 pg (27.0-33.0); MCHC 33.7 % (32.0-36.0); MCV 95 fL (80-95); MPV 9.8 fL (8.0-11.0); Monocytes % 8.1; Neutrophils % 41.8; Platelet Count 179 10^3/uL (130-400); RDW 15.1 % (11.8-14.1); RDW-SD 53.6 fL; WBC 5.93 10^3/uL (4.4-10.8)
[2023-07-18 09:40] LABS: ESR 6 mm/hr (0-20)
[2023-07-18 09:55] LABS: ALT 18 U/L (16-63); AST 22 U/L (15-37); Albumin 3.9 g/dL (3.4-5.0); Alkaline Phosphatase 67 U/L (46-116); Anion Gap 8.6 mmol/L (3-11); BUN 19 mg/dL (7-18); Bilirubin, Total 0.7 mg/dL (0.2-1.0); CO2 26.4 mmol/L (21.0-32.0); CREATININE 1.1 mg/dL (0.70-1.30); Calcium 9.6 mg/dL (8.5-10.1); Chloride 105 mmol/L (98-107); Estimated GFR 71.32 (mL/min/1.73m2); Glucose 114 mg/dL (74-106); Potassium 4.1 mmol/L (3.5-5.1); Sodium 140 mmol/L (136-145); Total Protein 8.2 g/dL (6.4-8.2)
== END 2023-07-18 03:58 | disposition home or self-care (01) ==
LOC: LBO 03:57
PROVIDERS: PCP Family Medicine; Visit Provider Internal Medicine Hematology & Oncology
DX: C81.18 Nodular sclerosis Hodgkin lymphoma, lymph nodes of multiple sites (principal)
CPT/HCPCS: 36415; 80053; 85652; 85025

== ENCOUNTER 2023-10-24 04:37 | Outpatient (CLI) | payer MEDICARE, OTHER, SELFPAY ==
[2023-10-24 09:48] LABS: Abs Immature Grans 0.01 10^3/uL (0.0-0.06); Absolute Basophil Count 0.05 10^3/uL (0.0-0.2); Absolute Eosinophil Count 0.09 10^3/uL (0.0-0.7); Absolute Lymphocyte Count 2.53 10^3/uL (1.2-3.4); Absolute Neutrophil Count 2.79 10^3/uL (1.2-6.7); Basophils % 0.9; Eosinophils % 1.5; HCT 43.8 % (40.0-50.0); HGB 14.7 g/dL (13.5-17.5); Immature Grans % 0.2; Lymphocytes % 43.1; MCH 31.3 pg (27.0-33.0); MCHC 33.6 % (32.0-36.0); MCV 93 fL (80-95); MPV 9.4 fL (8.0-11.0); Monocytes % 6.8; Neutrophils % 47.5; Platelet Count 162 10^3/uL (130-400); RBC 4.69 10^6/uL (4.36-5.78); RDW 14.6 % (11.8-14.1); RDW-SD 49.8 fL; WBC 5.87 10^3/uL (4.4-10.8)
[2023-10-24 09:50] LABS: ESR 12 mm/hr (0-20)
[2023-10-24 10:01] LABS: ALT 22 U/L (16-63); AST 20 U/L (15-37); Albumin 3.6 g/dL (3.4-5.0); Alkaline Phosphatase 55 U/L (46-116); Anion Gap 7.1 mmol/L (3-11); BUN 24 mg/dL (7-18); Bilirubin, Total 0.5 mg/dL (0.2-1.0); CO2 25.9 mmol/L (21.0-32.0); CREATININE 1.1 mg/dL (0.70-1.30); Calcium 9.2 mg/dL (8.5-10.1); Chloride 106 mmol/L (98-107); Estimated GFR 71.32 (mL/min/1.73m2); Glucose 102 mg/dL (74-106); Potassium 4.2 mmol/L (3.5-5.1); Sodium 139 mmol/L (136-145)
== END 2023-10-24 04:38 | disposition home or self-care (01) ==
LOC: LBO 04:39
PROVIDERS: PCP Family Medicine; Visit Provider Internal Medicine Hematology & Oncology
DX: C81.18 Nodular sclerosis Hodgkin lymphoma, lymph nodes of multiple sites (principal)
CPT/HCPCS: 36415; 80053; 85652; 85025

== ENCOUNTER 2024-04-23 04:26 | Outpatient (CLI) | payer MEDICARE, OTHER, SELFPAY ==
[2024-04-23 12:47] LABS: Absolute Basophil Count 0.03 10^3/uL (0.0-0.2); Absolute Eosinophil Count 0.09 10^3/uL (0.0-0.7); Absolute Monocyte Count 0.47 10^3/uL (0.1-0.8); Absolute Neutrophil Count 2.71 10^3/uL (1.2-6.7); Basophils % 0.4 %; Eosinophils % 1.3 %; HCT 46.6 % (40.0-50.0); HGB 15.4 g/dL (13.5-17.5); Lymphocytes % 51.5 %; MCH 32.2 pg (27.0-33.0); MCV 98 fL (80-95); MPV 9.8 fL (8.0-11.0); Monocytes % 6.9 %; Neutrophils % 39.9 %; Platelet Count 160 10^3/uL (130-400); RBC 4.78 10^6/uL (4.36-5.78); RDW 14.8 % (11.8-14.1); RDW-SD 53.7 fL
[2024-04-23 12:50] LABS: ESR 13 mm/hr (0-20)
[2024-04-23 13:06] LABS: ALT 16 U/L (16-63); AST 16 U/L (15-37); Albumin 3.9 g/dL (3.4-5.0); Alkaline Phosphatase 59 U/L (46-116); Anion Gap 9.8 mmol/L (3-11); BUN 20 mg/dL (7-18); Bilirubin, Total 0.74 mg/dL (0.2-1.0); CO2 25.2 mmol/L (21.0-32.0); CREATININE 1.2 mg/dL (0.70-1.30); Calcium 9.4 mg/dL (8.5-10.1); Chloride 106 mmol/L (98-107); Estimated GFR 64.25 (mL/min/1.73m2); Glucose 127 mg/dL (74-106); Potassium 4.4 mmol/L (3.5-5.1); Sodium 141 mmol/L (136-145); Total Protein 8.1 g/dL (6.4-8.2)
== END 2024-04-23 04:27 | disposition home or self-care (01) ==
LOC: LBO 04:26
PROVIDERS: PCP Family Medicine; Visit Provider Internal Medicine Hematology & Oncology
DX: C81.18 Nodular sclerosis Hodgkin lymphoma, lymph nodes of multiple sites (principal)
CPT/HCPCS: 36415; 80053; 85652; 85025

== ENCOUNTER 2024-10-21 02:58 | Outpatient (CLI) | payer MEDICARE, OTHER, SELFPAY ==
--- NOTE | 2024-10-21 | DI.CT_ITS ---
Exam(s) CT CHEST/ABD/PEL W EXAM: CT CHEST/ABD/PEL W CLINICAL HISTORY: C20 Rectal Cancer, abn MRI. TECHNIQUE: Imaging Protocol: Axial computed tomography images with coronal and sagittal reformatted images were created and reviewed CONTRAST MATERIAL: Intravenous: Omnipaque 350 Contrast volume:100 ml Oral: Yes. Oral contrast was also administered for bowel opacification. CT CT CHEST W CONTRAST from 10/29/2022 MR MRI PELVIS WWO CONTRAST (RECTAL CANCER STAGING) from 10/05/2024 FINDINGS: CHEST: LUNGS: There are no metastatic appearing lung nodules. There are no confluent infiltrates. There is evidence of previous left hemithoracic surgery again noted with with somewhat decreased left hemitho racic volume again noted. MEDIASTINUM: There is no hilar nor mediastinal adenopathy. Nodule noted in the left thyroid lobe. CARDIAC: Heart size upper normal. There is no pericardial effusion. Caliber of thoracic aorta is up per normal and there is no evidence of dissection.Pulmonary arteries are opacified in the study and t here is no evidence of pulmonary emboli. OSSEOUS: Left rib changes from prior left hemithoracic surgery, unchanged.No fractures nor significan t osseous lesions evident in the thoracic bones.. ABDOMEN: There is no ascites. LIVER: There are no significant focal hepatic lesions nor dilatation of intrahepatic ducts. GALLBLADDER/BILIARY: Multiple gallstones are noted in the gallbladder lumen. The gallbladder is not distended and the gallbladder wall does not appear edematous. There is no pericholecystic fluid. CB D is not dilated. PANCREAS: No evidence of pancreatic mass nor dilatation of the pancreatic duct. SPLEEN: Spleen is not enlarged. There are no intrasplenic lesions. Splenic and portal veins are thompson nt. ADRENALS: There are no significant adrenal masses. KIDNEYS: There is a partially exophytic cyst off the lateral cortex of the right kidney, this benign cysts measuring 6 x 5.5 cm. Does not require further workup. Smaller cortical cysts measuring less than 1 cm also noted in both kidneys. No solid renal masses evident. There are no radiopaque calcul i in the kidney. No hydronephrosis.. ABDOMINAL AORTA: Abdominal aorta is not enlarged. LYMPH NODES: There is no retroperitoneal nor paraaortic adenopathy. There is no adenopathy around th e aortic bifurcation. ABDOMINAL WALL: No evidence of significant anterior abdominal wall nor inguinal hernia. GI: The oral contrast has reached the distal transverse colon at time of image acquisition. There is no evidence of small-bowel obstruction. PELVIS: LYMPH NODES: There is no intrapelvic nor inguinal adenopathy. GI: No evidence of appendicitis.There are sigmoid diverticuli without evidence of obvious acute diver ticulitis.There is an abnormal thickening on the anterior right side of the rectal wall contiguous wi th the prostate and corresponding to what was described on recent MRI study. This measures approxima tely 2.2 by 2 cm. There does not appear to be obvious regional lymphadenopathy in the perirectal and obturator regions. URINARY BLADDER: Not distended. There is some relatively uniform thickening of the bladder wall cons istent with cystitis or under distension. Right-side of the urinary bladder is somewhat obscured by beam hardening artifact from right hip prosthesis. REPRODUCTIVE: Prostate and seminal vesicles are partially obscured by beam hardening artifact from ri ght hip prosthesis. Imar post processing was performed. OSSEOUS: There is a right hip prosthesis. There is multilevel fusion in the lumbar spine noted with posterior hardware at L2-L4 levels. Also bone graft donor site seen on both sides of the pelvis selena c bones. IMPRESSION: 1. Rectal malignancy as described above, corresponding to findings on recent outside MRI study. Ther e does not appear to be region local lymphadenopathy. 2. The mass involves the right wall of the rectum and extends anterolaterally into the right rectal p rostatic angle, seen on recent MRI study. 3. There are no metastatic lesions in the lung montero and there are no pleural effusions. 4. No evidence of liver metastases. No [id number] adenopathy. Right hip prosthesis. Also posterior fusion hardware at L2-L4 levels. RADIATION DOSE DELIVERED: 842.01mGy.cm Total DLP DATA REPOSITORY: All CT scans at this facility are submitted to the National Radiology Data Registry (NRDR) Dose Index Registry (DIR) with the [employer] ([employer]). RADIATION OPTIMIZATION: All CT scans at this facility use at least one of these dose optimization te chniques: automated exposure control; mA and/or kV adjustment per patient size (includes targeted exa ms where dose is matched to clinical indication); or iterative reconstruction.
[2024-10-21] MEDS: Normal Saline - Diluent 50 ML VIAL IJ (15:32)
[2024-10-21] MEDS: Omnipaque 350 MG/ML 100 ML BTL IJ (15:32)
== END 2024-10-21 03:18 ==
LOC: DI 02:58
PROVIDERS: PCP Physician Assistant; Visit Provider Colon & Rectal Surgery
DX: C20 Malignant neoplasm of rectum (principal); Z96.641 Presence of right artificial hip joint; Z98.890 Other specified postprocedural states
CPT/HCPCS: 74177; 71260; J3490

== ENCOUNTER 2024-10-28 01:09 | Outpatient (CLI) | payer MEDICARE, OTHER, SELFPAY ==
[2024-10-28 12:37] LABS: Abs Immature Grans 0.01 10^3/uL (0.0-0.06); Absolute Basophil Count 0.04 10^3/uL (0.0-0.2); Absolute Lymphocyte Count 3.31 10^3/uL (1.2-3.4); Absolute Monocyte Count 0.52 10^3/uL (0.1-0.8); Absolute Neutrophil Count 3.28 10^3/uL (1.2-6.7); Basophils % 0.6 %; ESR 4 mm/hr (0-20); Eosinophils % 1.4 %; HCT 44.6 % (40.0-50.0); HGB 14.9 g/dL (13.5-17.5); Immature Grans % 0.1 %; Lymphocytes % 45.6 %; MCH 32.7 pg (27.0-33.0); MCHC 33.4 % (32.0-36.0); MCV 98 fL (80-95); MPV 9.6 fL (8.0-11.0); Monocytes % 7.2 %; Neutrophils % 45.1 %; Platelet Count 130 10^3/uL (130-400); RBC 4.55 10^6/uL (4.36-5.78); RDW-SD 51.1 fL; WBC 7.26 10^3/uL (4.4-10.8)
[2024-10-28 12:59] LABS: ALT 32 U/L (16-63); AST 23 U/L (15-37); Albumin 3.8 g/dL (3.4-5.0); Alkaline Phosphatase 55 U/L (46-116); Anion Gap 5.7 mmol/L (3-11); BUN 20 mg/dL (7-18); Bilirubin, Total 0.73 mg/dL (0.2-1.0); CO2 29.3 mmol/L (21.0-32.0); CREATININE 1.1 mg/dL (0.70-1.30); Calcium 9.6 mg/dL (8.5-10.1); Chloride 108 mmol/L (98-107); Estimated GFR 70.88 (mL/min/1.73m2); Glucose 95 mg/dL (74-106); Potassium 4.3 mmol/L (3.5-5.1); Sodium 143 mmol/L (136-145); Total Protein 7.8 g/dL (6.4-8.2)
== END 2024-10-28 01:10 | disposition home or self-care (01) ==
LOC: LBO 01:09
PROVIDERS: PCP Physician Assistant; Visit Provider Internal Medicine Hematology & Oncology
DX: C81.18 Nodular sclerosis Hodgkin lymphoma, lymph nodes of multiple sites (principal)
CPT/HCPCS: 36415; 80053; 85652; 85025

== ENCOUNTER 2024-11-04 04:16 | Outpatient (CLI) | payer MEDICARE, OTHER, SELFPAY ==
[2024-11-04 13:15] LABS: Abs Immature Grans 0.01 10^3/uL (0.0-0.06); Absolute Basophil Count 0.03 10^3/uL (0.0-0.2); Absolute Eosinophil Count 0.09 10^3/uL (0.0-0.7); Absolute Monocyte Count 0.52 10^3/uL (0.1-0.8); Absolute Neutrophil Count 3.01 10^3/uL (1.2-6.7); Basophils % 0.5 %; Eosinophils % 1.4 %; HCT 43.9 % (40.0-50.0); HGB 14.6 g/dL (13.5-17.5); Immature Grans % 0.2 %; MCH 32.6 pg (27.0-33.0); MCHC 33.3 % (32.0-36.0); MCV 98 fL (80-95); MPV 9.8 fL (8.0-11.0); Monocytes % 7.8 %; Neutrophils % 45.1 %; Platelet Count 149 10^3/uL (130-400); RBC 4.48 10^6/uL (4.36-5.78); RDW 14.2 % (11.8-14.1); RDW-SD 51.4 fL; WBC 6.66 10^3/uL (4.4-10.8)
[2024-11-04 13:33] LABS: ALT 32 U/L (16-63); AST 20 U/L (15-37); Albumin 3.7 g/dL (3.4-5.0); Alkaline Phosphatase 57 U/L (46-116); Anion Gap 4.5 mmol/L (3-11); BUN 16 mg/dL (7-18); Bilirubin, Total 0.52 mg/dL (0.2-1.0); CO2 30.5 mmol/L (21.0-32.0); Calcium 9.7 mg/dL (8.5-10.1); Chloride 108 mmol/L (98-107); Estimated GFR 79.47 (mL/min/1.73m2); Glucose 107 mg/dL (74-106); Potassium 4.4 mmol/L (3.5-5.1); Sodium 143 mmol/L (136-145); Total Protein 7.9 g/dL (6.4-8.2)
[2024-11-17 10:01] LABS: Misc Referral (MAYO) See Comments
== END 2024-11-04 04:17 | disposition home or self-care (01) ==
PROVIDERS: PCP Physician Assistant; Visit Provider Internal Medicine Hematology & Oncology
DX: C20 Malignant neoplasm of rectum (principal)
CPT/HCPCS: 36415; 80053; 81232; 85025

== ENCOUNTER 2024-11-19 14:45 | Outpatient (CLI) | payer MEDICARE, OTHER, SELFPAY ==
[2024-11-19 13:48] LABS: Abs Immature Grans 0.02 10^3/uL (0.0-0.06); Absolute Basophil Count 0.02 10^3/uL (0.0-0.2); Absolute Eosinophil Count 0.05 10^3/uL (0.0-0.7); Absolute Lymphocyte Count 2.93 10^3/uL (1.2-3.4); Absolute Monocyte Count 0.52 10^3/uL (0.1-0.8); Absolute Neutrophil Count 3.33 10^3/uL (1.2-6.7); Basophils % 0.3 %; Eosinophils % 0.7 %; HCT 44.5 % (40.0-50.0); HGB 14.8 g/dL (13.5-17.5); Immature Grans % 0.3 %; Lymphocytes % 42.6 %; MCH 32.3 pg (27.0-33.0); MCHC 33.3 % (32.0-36.0); MCV 97 fL (80-95); MPV 9.6 fL (8.0-11.0); Monocytes % 7.6 %; Neutrophils % 48.5 %; Platelet Count 148 10^3/uL (130-400); RBC 4.58 10^6/uL (4.36-5.78); RDW 14.2 % (11.8-14.1); RDW-SD 51.4 fL; WBC 6.87 10^3/uL (4.4-10.8)
[2024-11-19 13:52] LABS: ALT 26 U/L (16-63); AST 20 U/L (15-37); Albumin 3.7 g/dL (3.4-5.0); Alkaline Phosphatase 58 U/L (46-116); Anion Gap 4.5 mmol/L (3-11); BUN 22 mg/dL (7-18); Bilirubin, Total 0.62 mg/dL (0.2-1.0); CO2 28.5 mmol/L (21.0-32.0); CREATININE 1.1 mg/dL (0.70-1.30); Calcium 9.3 mg/dL (8.5-10.1); Chloride 110 mmol/L (98-107); Estimated GFR 70.88 (mL/min/1.73m2); Glucose 98 mg/dL (74-106); Potassium 4.2 mmol/L (3.5-5.1); Sodium 143 mmol/L (136-145); Total Protein 7.9 g/dL (6.4-8.2)
== END 2024-11-19 14:46 | disposition home or self-care (01) ==
LOC: LBO 14:46
PROVIDERS: PCP Physician Assistant; Visit Provider Internal Medicine Hematology & Oncology
DX: C20 Malignant neoplasm of rectum (principal)
CPT/HCPCS: 36415; 80053; 85025

== ENCOUNTER 2024-11-25 03:41 | Outpatient (CLI) | payer MEDICARE, OTHER, SELFPAY ==
[2024-11-25 09:23] LABS: Abs Immature Grans 0.02 10^3/uL (0.0-0.06); Absolute Basophil Count 0.02 10^3/uL (0.0-0.2); Absolute Eosinophil Count 0.06 10^3/uL (0.0-0.7); Absolute Lymphocyte Count 2.27 10^3/uL (1.2-3.4); Absolute Monocyte Count 0.39 10^3/uL (0.1-0.8); Absolute Neutrophil Count 2.25 10^3/uL (1.2-6.7); Basophils % 0.4 %; Eosinophils % 1.2 %; Immature Grans % 0.4 %; Lymphocytes % 45.3 %; MCH 32.3 pg (27.0-33.0); MCHC 33.3 % (32.0-36.0); MCV 97 fL (80-95); MPV 9.4 fL (8.0-11.0); Monocytes % 7.8 %; Neutrophils % 44.9 %; Platelet Count 134 10^3/uL (130-400); RBC 4.64 10^6/uL (4.36-5.78); RDW 14.1 % (11.8-14.1); RDW-SD 49.8 fL; WBC 5.01 10^3/uL (4.4-10.8)
[2024-11-25 09:38] LABS: ALT 28 U/L (16-63); AST 21 U/L (15-37); Albumin 3.8 g/dL (3.4-5.0); Alkaline Phosphatase 57 U/L (46-116); Anion Gap 6.5 mmol/L (3-11); BUN 18 mg/dL (7-18); Bilirubin, Total 0.67 mg/dL (0.2-1.0); CO2 28.5 mmol/L (21.0-32.0); CREATININE 1.2 mg/dL (0.70-1.30); Calcium 9.6 mg/dL (8.5-10.1); Chloride 109 mmol/L (98-107); Estimated GFR 63.85 (mL/min/1.73m2); Glucose 113 mg/dL (74-106); Potassium 4.9 mmol/L (3.5-5.1); Sodium 144 mmol/L (136-145)
== END 2024-11-25 03:42 | disposition home or self-care (01) ==
LOC: LBO 03:41
PROVIDERS: PCP Physician Assistant; Visit Provider Internal Medicine Hematology & Oncology
DX: C20 Malignant neoplasm of rectum (principal)
CPT/HCPCS: 36415; 80053; 85025

== ENCOUNTER 2024-12-02 04:26 | Outpatient (CLI) | payer MEDICARE, OTHER, SELFPAY ==
[2024-12-02 14:30] LABS: Abs Immature Grans 0.01 10^3/uL (0.0-0.06); Absolute Basophil Count 0.02 10^3/uL (0.0-0.2); Absolute Eosinophil Count 0.07 10^3/uL (0.0-0.7); Absolute Lymphocyte Count 1.57 10^3/uL (1.2-3.4); Absolute Monocyte Count 0.39 10^3/uL (0.1-0.8); Absolute Neutrophil Count 2.43 10^3/uL (1.2-6.7); Basophils % 0.4 %; Eosinophils % 1.6 %; HCT 42.1 % (40.0-50.0); HGB 14.4 g/dL (13.5-17.5); Immature Grans % 0.2 %; MCH 32.7 pg (27.0-33.0); MCHC 34.2 % (32.0-36.0); MCV 96 fL (80-95); MPV 9.5 fL (8.0-11.0); Monocytes % 8.7 %; Neutrophils % 54.1 %; Platelet Count 127 10^3/uL (130-400); RDW 14.1 % (11.8-14.1); RDW-SD 48.9 fL; WBC 4.49 10^3/uL (4.4-10.8)
[2024-12-02 14:52] LABS: ALT 26 U/L (16-63); AST 17 U/L (15-37); Albumin 3.8 g/dL (3.4-5.0); Alkaline Phosphatase 50 U/L (46-116); Anion Gap 5.7 mmol/L (3-11); BUN 19 mg/dL (7-18); Bilirubin, Total 0.6 mg/dL (0.2-1.0); CO2 28.3 mmol/L (21.0-32.0); Calcium 9.6 mg/dL (8.5-10.1); Chloride 107 mmol/L (98-107); Estimated GFR 79.47 (mL/min/1.73m2); Glucose 97 mg/dL (74-106); Potassium 4.3 mmol/L (3.5-5.1); Sodium 141 mmol/L (136-145); Total Protein 7.7 g/dL (6.4-8.2)
== END 2024-12-02 04:27 | disposition home or self-care (01) ==
LOC: LBO 04:26
PROVIDERS: PCP Physician Assistant; Visit Provider Internal Medicine Hematology & Oncology
DX: C20 Malignant neoplasm of rectum (principal)
CPT/HCPCS: 36415; 80053; 85025

== ENCOUNTER 2024-12-09 03:37 | Outpatient (CLI) | payer MEDICARE, OTHER, SELFPAY ==
[2024-12-09 13:45] LABS: Abs Immature Grans 0.01 10^3/uL (0.0-0.06); Absolute Basophil Count 0.03 10^3/uL (0.0-0.2); Absolute Eosinophil Count 0.07 10^3/uL (0.0-0.7); Absolute Lymphocyte Count 1.42 10^3/uL (1.2-3.4); Absolute Monocyte Count 0.57 10^3/uL (0.1-0.8); Absolute Neutrophil Count 2.68 10^3/uL (1.2-6.7); Basophils % 0.6 %; Eosinophils % 1.5 %; HCT 40.8 % (40.0-50.0); HGB 13.6 g/dL (13.5-17.5); Immature Grans % 0.2 %; Lymphocytes % 29.7 %; MCH 32.2 pg (27.0-33.0); MCHC 33.3 % (32.0-36.0); MCV 97 fL (80-95); MPV 9.8 fL (8.0-11.0); Monocytes % 11.9 %; Neutrophils % 56.1 %; Platelet Count 123 10^3/uL (130-400); RBC 4.23 10^6/uL (4.36-5.78); RDW 14.6 % (11.8-14.1); RDW-SD 50.1 fL; WBC 4.78 10^3/uL (4.4-10.8)
[2024-12-09 14:24] LABS: ALT 19 U/L (16-63); AST 21 U/L (15-37); Albumin 3.8 g/dL (3.4-5.0); Alkaline Phosphatase 56 U/L (46-116); Anion Gap 5.2 mmol/L (3-11); BUN 17 mg/dL (7-18); Bilirubin, Total 0.7 mg/dL (0.2-1.0); CO2 29.8 mmol/L (21.0-32.0); Calcium 9.5 mg/dL (8.5-10.1); Chloride 106 mmol/L (98-107); Estimated GFR 79.47 (mL/min/1.73m2); Glucose 118 mg/dL (74-106); Potassium 4.3 mmol/L (3.5-5.1); Sodium 141 mmol/L (136-145); Total Protein 7.8 g/dL (6.4-8.2)
== END 2024-12-09 03:38 | disposition home or self-care (01) ==
LOC: LBO 03:37
PROVIDERS: PCP Physician Assistant; Visit Provider Internal Medicine Hematology & Oncology
DX: C20 Malignant neoplasm of rectum (principal)
CPT/HCPCS: 36415; 80053; 85025

== ENCOUNTER 2024-12-15 02:48 | Outpatient (CLI) | payer MEDICARE, OTHER, SELFPAY ==
[2024-12-15 08:43] LABS: Abs Immature Grans 0.01 10^3/uL (0.0-0.06); Absolute Basophil Count 0.02 10^3/uL (0.0-0.2); Absolute Eosinophil Count 0.08 10^3/uL (0.0-0.7); Absolute Monocyte Count 0.63 10^3/uL (0.1-0.8); Absolute Neutrophil Count 3.32 10^3/uL (1.2-6.7); Basophils % 0.4 %; Eosinophils % 1.6 %; HCT 39.9 % (40.0-50.0); HGB 13.6 g/dL (13.5-17.5); Immature Grans % 0.2 %; Lymphocytes % 21.3 %; MCH 32.8 pg (27.0-33.0); MCHC 34.1 % (32.0-36.0); MCV 96 fL (80-95); MPV 8.7 fL (8.0-11.0); Monocytes % 12.2 %; Neutrophils % 64.3 %; Platelet Count 100 10^3/uL (130-400); RBC 4.15 10^6/uL (4.36-5.78); RDW 14.8 % (11.8-14.1); RDW-SD 50.6 fL; WBC 5.16 10^3/uL (4.4-10.8)
[2024-12-15 09:03] LABS: ALT 19 U/L (16-63); AST 17 U/L (15-37); Albumin 3.5 g/dL (3.4-5.0); Alkaline Phosphatase 57 U/L (46-116); Anion Gap 6.3 mmol/L (3-11); BUN 18 mg/dL (7-18); Bilirubin, Total 0.9 mg/dL (0.2-1.0); CO2 27.7 mmol/L (21.0-32.0); CREATININE 1.1 mg/dL (0.70-1.30); Calcium 9.3 mg/dL (8.5-10.1); Chloride 106 mmol/L (98-107); Estimated GFR 70.88 (mL/min/1.73m2); Glucose 113 mg/dL (74-106); Potassium 3.7 mmol/L (3.5-5.1); Sodium 140 mmol/L (136-145); Total Protein 7.7 g/dL (6.4-8.2)
== END 2024-12-15 02:49 | disposition home or self-care (01) ==
PROVIDERS: PCP Physician Assistant; Visit Provider Internal Medicine Hematology & Oncology
DX: C20 Malignant neoplasm of rectum (principal)
CPT/HCPCS: 36415; 80053; 85025

== ENCOUNTER 2024-12-23 02:55 | Outpatient (CLI) | payer MEDICARE, OTHER, SELFPAY ==
[2024-12-23 09:37] LABS: Abs Immature Grans 0.01 10^3/uL (0.0-0.06); Absolute Basophil Count 0.02 10^3/uL (0.0-0.2); Absolute Eosinophil Count 0.08 10^3/uL (0.0-0.7); Absolute Lymphocyte Count 0.58 10^3/uL (1.2-3.4); Absolute Monocyte Count 0.43 10^3/uL (0.1-0.8); Absolute Neutrophil Count 3.05 10^3/uL (1.2-6.7); Basophils % 0.5 %; Eosinophils % 1.9 %; HCT 37.6 % (40.0-50.0); Immature Grans % 0.2 %; Lymphocytes % 13.9 %; MCH 33.1 pg (27.0-33.0); MCHC 34.6 % (32.0-36.0); MCV 96 fL (80-95); MPV 9.2 fL (8.0-11.0); Monocytes % 10.3 %; Neutrophils % 73.2 %; Platelet Count 134 10^3/uL (130-400); RBC 3.93 10^6/uL (4.36-5.78); RDW 15.7 % (11.8-14.1); RDW-SD 53.7 fL; WBC 4.17 10^3/uL (4.4-10.8)
[2024-12-23 10:06] LABS: ALT 19 U/L (16-63); AST 16 U/L (15-37); Albumin 3.3 g/dL (3.4-5.0); Alkaline Phosphatase 54 U/L (46-116); Anion Gap 9.2 mmol/L (3-11); BUN 19 mg/dL (7-18); Bilirubin, Total 0.6 mg/dL (0.2-1.0); CO2 27.8 mmol/L (21.0-32.0); CREATININE 1.1 mg/dL (0.70-1.30); Calcium 9.5 mg/dL (8.5-10.1); Chloride 105 mmol/L (98-107); Estimated GFR 70.88 (mL/min/1.73m2); Glucose 113 mg/dL (74-106); Potassium 4.1 mmol/L (3.5-5.1); Sodium 142 mmol/L (136-145); Total Protein 7.4 g/dL (6.4-8.2)
== END 2024-12-23 02:56 | disposition home or self-care (01) ==
LOC: LBO 02:55
PROVIDERS: PCP Physician Assistant; Visit Provider Internal Medicine Hematology & Oncology
DX: C20 Malignant neoplasm of rectum (principal)
CPT/HCPCS: 36415; 80053; 85025

== ENCOUNTER 2025-01-07 10:42 | Outpatient (REF) | payer MEDICARE, OTHER, SELFPAY ==
[2025-01-07 11:23] LABS: Abs Immature Grans 0.01 10^3/uL (0.0-0.06); Absolute Basophil Count 0.03 10^3/uL (0.0-0.2); Absolute Eosinophil Count 0.14 10^3/uL (0.0-0.7); Absolute Lymphocyte Count 0.81 10^3/uL (1.2-3.4); Absolute Monocyte Count 0.43 10^3/uL (0.1-0.8); Absolute Neutrophil Count 2.31 10^3/uL (1.2-6.7); Basophils % 0.8 %; Eosinophils % 3.8 %; HCT 38.1 % (40.0-50.0); HGB 12.7 g/dL (13.5-17.5); Immature Grans % 0.3 %; Lymphocytes % 21.7 %; MCH 32.6 pg (27.0-33.0); MCHC 33.3 % (32.0-36.0); MCV 98 fL (80-95); MPV 10.3 fL (8.0-11.0); Monocytes % 11.5 %; Neutrophils % 61.9 %; Platelet Count 122 10^3/uL (130-400); RDW 16.4 % (11.8-14.1); RDW-SD 57.7 fL; WBC 3.73 10^3/uL (4.4-10.8)
[2025-01-07 11:43] LABS: ALT 22 U/L (16-63); AST 19 U/L (15-37); Albumin 3.5 g/dL (3.4-5.0); Alkaline Phosphatase 64 U/L (46-116); Anion Gap 6.8 mmol/L (3-11); BUN 20 mg/dL (7-18); Bilirubin, Total 0.9 mg/dL (0.2-1.0); CO2 27.2 mmol/L (21.0-32.0); Calcium 9.3 mg/dL (8.5-10.1); Chloride 107 mmol/L (98-107); Estimated GFR 79.47 (mL/min/1.73m2); Glucose 109 mg/dL (74-106); Potassium 3.9 mmol/L (3.5-5.1); Sodium 141 mmol/L (136-145); Total Protein 7.3 g/dL (6.4-8.2)
[2025-01-07 18:33] LABS: CEA 1.4 ng/mL (See Note)
== END 2025-01-07 10:43 | disposition home or self-care (01) ==
LOC: LBN 10:42
PROVIDERS: Internal Medicine Hematology & Oncology; PCP Physician Assistant; Visit Provider Nurse Practitioner Family
DX: C20 Malignant neoplasm of rectum (principal)
CPT/HCPCS: 80053; 82378; 85025

== ENCOUNTER 2025-01-09 00:52 | Outpatient (RCR) | payer MEDICARE, OTHER, SELFPAY ==
[2025-01-09] MEDS: Normal Saline Flush 10 ML SYR IVP (13:07)
== END 2025-01-20 23:59 | disposition home or self-care (01) ==
LOC: INF 00:52
PROVIDERS: PCP Physician Assistant; Visit Provider Internal Medicine Hematology & Oncology
DX: Z45.2 Encounter for adjustment and management of vascular access device (principal)
CPT/HCPCS: 96523

== ENCOUNTER 2025-02-06 11:49 | Outpatient (CLI) | payer MEDICARE, OTHER, SELFPAY ==
[2025-02-06] MEDS: Normal Saline Flush 10 ML SYR IVP (13:27)
== END 2025-02-06 11:50 | disposition home or self-care (01) ==
PROVIDERS: PCP Physician Assistant; Visit Provider Internal Medicine Hematology & Oncology
DX: Z45.2 Encounter for adjustment and management of vascular access device (principal)
CPT/HCPCS: 96523

== ENCOUNTER 2025-02-18 02:54 | Outpatient (RCR) | payer MEDICARE, OTHER, SELFPAY ==
[2025-01-21 08:48] LABS: Abs Immature Grans 0.01 10^3/uL (0.0-0.06); Absolute Basophil Count 0.03 10^3/uL (0.0-0.2); Absolute Eosinophil Count 0.12 10^3/uL (0.0-0.7); Absolute Lymphocyte Count 1.23 10^3/uL (1.2-3.4); Absolute Monocyte Count 0.37 10^3/uL (0.1-0.8); Basophils % 0.9 %; Eosinophils % 3.6 %; HCT 35.8 % (40.0-50.0); HGB 12.2 g/dL (13.5-17.5); Immature Grans % 0.3 %; Lymphocytes % 36.6 %; MCH 33.2 pg (27.0-33.0); MCHC 34.1 % (32.0-36.0); MCV 97 fL (80-95); MPV 9.2 fL (8.0-11.0); Neutrophils % 47.6 %; Platelet Count 108 10^3/uL (130-400); RBC 3.68 10^6/uL (4.36-5.78); RDW 16.2 % (11.8-14.1); RDW-SD 57.4 fL; WBC 3.36 10^3/uL (4.4-10.8)
[2025-01-21 09:01] LABS: ALT 30 U/L (16-63); AST 24 U/L (15-37); Albumin 3.6 g/dL (3.4-5.0); Alkaline Phosphatase 62 U/L (46-116); Anion Gap 10.4 mmol/L (3-11); BUN 13 mg/dL (7-18); Bilirubin, Total 0.8 mg/dL (0.2-1.0); CO2 25.6 mmol/L (21.0-32.0); Calcium 9.4 mg/dL (8.5-10.1); Chloride 109 mmol/L (98-107); Estimated GFR 79.47 (mL/min/1.73m2); Glucose 113 mg/dL (74-106); Potassium 3.7 mmol/L (3.5-5.1); Sodium 145 mmol/L (136-145); Total Protein 7.2 g/dL (6.4-8.2)
[2025-01-21] MEDS: Normal Saline Flush 10 ML SYR IVP (12:44)
[2025-01-21 21:41] LABS: CEA 1.5 ng/mL (See Note)
[2025-01-23 10:54] VITALS: BP 135/84; PULSE 74; RESP 16; TEMP 36.6; O2SAT 97
[2025-01-23] MEDS: Normal Saline Flush 10 ML SYR IVP (10:57)
[2025-02-04 10:12] LABS: Abs Immature Grans 0.01 10^3/uL (0.0-0.06); Absolute Basophil Count 0.02 10^3/uL (0.0-0.2); Absolute Eosinophil Count 0.04 10^3/uL (0.0-0.7); Absolute Lymphocyte Count 1.33 10^3/uL (1.2-3.4); Absolute Monocyte Count 0.47 10^3/uL (0.1-0.8); Absolute Neutrophil Count 1.61 10^3/uL (1.2-6.7); Basophils % 0.6 %; Eosinophils % 1.1 %; HCT 34.7 % (40.0-50.0); Immature Grans % 0.3 %; Lymphocytes % 38.2 %; MCH 33.3 pg (27.0-33.0); MCHC 34.6 % (32.0-36.0); MCV 96 fL (80-95); Monocytes % 13.5 %; Neutrophils % 46.3 %; Platelet Count 101 10^3/uL (130-400); RDW 15.9 % (11.8-14.1); RDW-SD 56.5 fL; WBC 3.48 10^3/uL (4.4-10.8)
[2025-02-04] MEDS: Normal Saline Flush 10 ML SYR IVP (10:15)
[2025-02-04 10:33] LABS: ALT 28 U/L (16-63); AST 26 U/L (15-37); Albumin 3.7 g/dL (3.4-5.0); Alkaline Phosphatase 60 U/L (46-116); BUN 18 mg/dL (7-18); Bilirubin, Total 0.7 mg/dL (0.2-1.0); Calcium 9.8 mg/dL (8.5-10.1); Chloride 107 mmol/L (98-107); Estimated GFR 79.47 (mL/min/1.73m2); Glucose 107 mg/dL (74-106); Sodium 141 mmol/L (136-145); Total Protein 7.7 g/dL (6.4-8.2)
[2025-02-04 19:16] LABS: CEA 1.7 ng/mL (See Note)
[2025-02-18] MEDS: Normal Saline Flush 10 ML SYR IVP (10:21)
[2025-02-18 10:40] LABS: Abs Immature Grans 0.01 10^3/uL (0.0-0.06); Absolute Basophil Count 0.01 10^3/uL (0.0-0.2); Absolute Eosinophil Count 0.05 10^3/uL (0.0-0.7); Absolute Lymphocyte Count 1.17 10^3/uL (1.2-3.4); Absolute Monocyte Count 0.42 10^3/uL (0.1-0.8); Absolute Neutrophil Count 1.18 10^3/uL (1.2-6.7); Basophils % 0.4 %; Eosinophils % 1.8 %; HCT 33.4 % (40.0-50.0); HGB 11.2 g/dL (13.5-17.5); Immature Grans % 0.4 %; Lymphocytes % 41.2 %; MCH 32.7 pg (27.0-33.0); MCHC 33.5 % (32.0-36.0); MCV 97 fL (80-95); MPV 10.3 fL (8.0-11.0); Monocytes % 14.8 %; Neutrophils % 41.4 %; RBC 3.43 10^6/uL (4.36-5.78); RDW 15.7 % (11.8-14.1); WBC 2.84 10^3/uL (4.4-10.8)
[2025-02-18 10:57] LABS: ALT 26 U/L (16-63); AST 25 U/L (15-37); Albumin 3.3 g/dL (3.4-5.0); Alkaline Phosphatase 58 U/L (46-116); BUN 17 mg/dL (7-18); Bilirubin, Total 0.8 mg/dL (0.2-1.0); CREATININE 0.8 mg/dL (0.70-1.30); Calcium 8.9 mg/dL (8.5-10.1); Chloride 106 mmol/L (98-107); Estimated GFR 93.45 (mL/min/1.73m2); Glucose 108 mg/dL (74-106); Potassium 3.8 mmol/L (3.5-5.1); Sodium 141 mmol/L (136-145)
[2025-02-18 11:03] LABS: Diff Comment Diff Reviewed; Platelet Count 78 10^3/uL (130-400); RBC Morphology Normal
== END 2025-02-20 23:59 | disposition home or self-care (01) ==
LOC: INF 02:54
PROVIDERS: Nurse Practitioner Family; PCP Physician Assistant; Visit Provider Internal Medicine Hematology & Oncology
DX: C20 Malignant neoplasm of rectum (principal); Z45.2 Encounter for adjustment and management of vascular access device
CPT/HCPCS: 36591; 80053; 96523; 82378; 85025

== ENCOUNTER 2025-03-13 00:07 | Outpatient (RCR) | payer MEDICARE, OTHER, SELFPAY ==
[2025-02-26 10:34] LABS: Abs Immature Grans 0.03 10^3/uL (0.0-0.06); Absolute Basophil Count 0.03 10^3/uL (0.0-0.2); Absolute Eosinophil Count 0.05 10^3/uL (0.0-0.7); Absolute Lymphocyte Count 1.89 10^3/uL (1.2-3.4); Absolute Monocyte Count 0.91 10^3/uL (0.1-0.8); Absolute Neutrophil Count 2.11 10^3/uL (1.2-6.7); Basophils % 0.6 %; HCT 35.4 % (40.0-50.0); Immature Grans % 0.6 %; Lymphocytes % 37.6 %; MCH 33.4 pg (27.0-33.0); MCHC 33.9 % (32.0-36.0); MCV 99 fL (80-95); MPV 9.7 fL (8.0-11.0); Monocytes % 18.1 %; Neutrophils % 42.1 %; Platelet Count 150 10^3/uL (130-400); RBC 3.59 10^6/uL (4.36-5.78); RDW 15.8 % (11.8-14.1); RDW-SD 57.7 fL; WBC 5.02 10^3/uL (4.4-10.8)
[2025-02-26] MEDS: Normal Saline Flush 10 ML SYR IVP (10:45)
[2025-02-26 10:51] LABS: ALT 23 U/L (16-63); AST 19 U/L (15-37); Albumin 3.5 g/dL (3.4-5.0); Alkaline Phosphatase 61 U/L (46-116); Anion Gap 8.1 mmol/L (3-11); BUN 14 mg/dL (7-18); CO2 26.9 mmol/L (21.0-32.0); CREATININE 0.9 mg/dL (0.70-1.30); Calcium 9.3 mg/dL (8.5-10.1); Chloride 105 mmol/L (98-107); Estimated GFR 90.18 (mL/min/1.73m2); Glucose 107 mg/dL (74-106); Potassium 3.9 mmol/L (3.5-5.1); Sodium 140 mmol/L (136-145); Total Protein 7.6 g/dL (6.4-8.2)
[2025-02-26 19:58] LABS: CEA 1.6 ng/mL (See Note)
[2025-02-28 12:03] VITALS: BP 125/78; PULSE 66; RESP 16; TEMP 37.1; O2SAT 99
[2025-02-28] MEDS: Normal Saline Flush 10 ML SYR IVP (12:16)
[2025-03-11] MEDS: Normal Saline Flush 10 ML SYR IVP (08:24)
[2025-03-11 08:35] LABS: Abs Immature Grans 0.01 10^3/uL (0.0-0.06); Absolute Basophil Count 0.02 10^3/uL (0.0-0.2); Absolute Eosinophil Count 0.05 10^3/uL (0.0-0.7); Absolute Lymphocyte Count 1.39 10^3/uL (1.2-3.4); Absolute Monocyte Count 0.35 10^3/uL (0.1-0.8); Absolute Neutrophil Count 1.81 10^3/uL (1.2-6.7); Basophils % 0.6 %; Eosinophils % 1.4 %; HCT 32.6 % (40.0-50.0); Immature Grans % 0.3 %; Lymphocytes % 38.3 %; MCH 33.4 pg (27.0-33.0); MCHC 33.7 % (32.0-36.0); MCV 99 fL (80-95); Monocytes % 9.6 %; Neutrophils % 49.8 %; RBC 3.29 10^6/uL (4.36-5.78); RDW 14.8 % (11.8-14.1); RDW-SD 53.5 fL; WBC 3.63 10^3/uL (4.4-10.8)
[2025-03-11 08:45] LABS: Platelet Count 81 10^3/uL (130-400)
[2025-03-11 08:59] LABS: ALT 28 U/L (16-63); AST 20 U/L (15-37); Albumin 3.5 g/dL (3.4-5.0); Alkaline Phosphatase 56 U/L (46-116); Anion Gap 6.9 mmol/L (3-11); BUN 21 mg/dL (7-18); Bilirubin, Total 0.7 mg/dL (0.2-1.0); CO2 26.1 mmol/L (21.0-32.0); CREATININE 0.7 mg/dL (0.70-1.30); Calcium 8.9 mg/dL (8.5-10.1); Chloride 106 mmol/L (98-107); Estimated GFR 97.29 (mL/min/1.73m2); Glucose 111 mg/dL (74-106); Potassium 3.8 mmol/L (3.5-5.1); Sodium 139 mmol/L (136-145); Total Protein 7.2 g/dL (6.4-8.2)
[2025-03-11 18:05] LABS: CEA 1.5 ng/mL (See Note)
[2025-03-13 13:03] VITALS: BP 132/76; PULSE 78; RESP 16; TEMP 36.7; O2SAT 96
== END 2025-03-22 23:59 | disposition home or self-care (01) ==
LOC: INF 00:07
PROVIDERS: PCP Physician Assistant; Visit Provider Internal Medicine Hematology & Oncology
DX: C20 Malignant neoplasm of rectum (principal); Z45.2 Encounter for adjustment and management of vascular access device
CPT/HCPCS: 36591; 80053; 96523; 82378; 85025

== ENCOUNTER 2025-04-22 08:30 | Outpatient (RCR) | payer MEDICARE, OTHER, SELFPAY ==
[2025-03-25] MEDS: Normal Saline Flush 10 ML SYR IVP (08:39)
[2025-03-25 08:46] LABS: Abs Immature Grans 0.01 10^3/uL (0.0-0.06); HCT 33.5 % (40.0-50.0); HGB 11.3 g/dL (13.5-17.5); Immature Grans % 0.3 %; MCH 33.8 pg (27.0-33.0); MCHC 33.7 % (32.0-36.0); MCV 100 fL (80-95); MPV 9.7 fL (8.0-11.0); RBC 3.34 10^6/uL (4.36-5.78); RDW 14.4 % (11.8-14.1); RDW-SD 52.5 fL; WBC 3.39 10^3/uL (4.4-10.8)
[2025-03-25 09:05] LABS: Platelet Count 75 10^3/uL (130-400); RBC Morphology Normal
[2025-03-25 09:25] LABS: ALT 20 U/L (16-63); AST 17 U/L (15-37); Albumin 3.6 g/dL (3.4-5.0); Alkaline Phosphatase 64 U/L (46-116); Anion Gap 9.7 mmol/L (3-11); BUN 14 mg/dL (7-18); Bilirubin, Total 0.7 mg/dL (0.2-1.0); CO2 26.3 mmol/L (21.0-32.0); Calcium 9.3 mg/dL (8.5-10.1); Chloride 107 mmol/L (98-107); Estimated GFR 93.45 (mL/min/1.73m2); Glucose 113 mg/dL (74-106); Potassium 4.3 mmol/L (3.5-5.1); Sodium 143 mmol/L (136-145); Total Protein 7.5 g/dL (6.4-8.2)
[2025-03-25 18:46] LABS: CEA 1.5 ng/mL (See Note)
[2025-04-02] MEDS: Normal Saline Flush 10 ML SYR IVP (09:00)
[2025-04-02 09:13] LABS: Abs Immature Grans 0.01 10^3/uL (0.0-0.06); HCT 33.4 % (40.0-50.0); HGB 11.0 g/dL (13.5-17.5); Immature Grans % 0.3 %; MCH 33.1 pg (27.0-33.0); MCHC 32.9 % (32.0-36.0); MCV 101 fL (80-95); MPV 9.4 fL (8.0-11.0); Platelet Count 119 10^3/uL (130-400); RBC 3.32 10^6/uL (4.36-5.78); RDW 14.0 % (11.8-14.1); RDW-SD 52.1 fL; WBC 3.55 10^3/uL (4.4-10.8)
[2025-04-02 09:29] LABS: ALT 20 U/L (16-63); AST 17 U/L (15-37); Albumin 3.6 g/dL (3.4-5.0); Alkaline Phosphatase 65 U/L (46-116); Anion Gap 6.4 mmol/L (3-11); BUN 24 mg/dL (7-18); Bilirubin, Total 0.4 mg/dL (0.2-1.0); CO2 28.6 mmol/L (21.0-32.0); Calcium 9.1 mg/dL (8.5-10.1); Chloride 106 mmol/L (98-107); Estimated GFR 70.88 (mL/min/1.73m2); Glucose 107 mg/dL (74-106); Potassium 4.1 mmol/L (3.5-5.1); Sodium 141 mmol/L (136-145); Total Protein 7.6 g/dL (6.4-8.2)
[2025-04-02 18:42] LABS: CEA 1.6 ng/mL (See Note)
[2025-04-04] MEDS: Normal Saline Flush 10 ML SYR IVP (11:35)
[2025-04-04 11:46] VITALS: BP 109/58; PULSE 58; RESP 16; TEMP 36.1; O2SAT 97
[2025-04-15] MEDS: Normal Saline Flush 10 ML SYR IVP (11:00)
[2025-04-15 11:11] LABS: Abs Immature Grans 0.01 10^3/uL (0.0-0.06); HCT 31.9 % (40.0-50.0); HGB 10.8 g/dL (13.5-17.5); Immature Grans % 0.3 %; MCH 33.8 pg (27.0-33.0); MCHC 33.9 % (32.0-36.0); MCV 100 fL (80-95); MPV 11.0 fL (8.0-11.0); RBC 3.20 10^6/uL (4.36-5.78); RDW 14.3 % (11.8-14.1); RDW-SD 51.4 fL; WBC 2.89 10^3/uL (4.4-10.8)
[2025-04-15 11:27] LABS: Platelet Count 60 10^3/uL (130-400)
[2025-04-15 11:28] LABS: RBC Morphology Normal
[2025-04-15 11:48] LABS: ALT 22 U/L (16-63); AST 21 U/L (15-37); Albumin 3.5 g/dL (3.4-5.0); Alkaline Phosphatase 57 U/L (46-116); Anion Gap 10.1 mmol/L (3-11); BUN 14 mg/dL (7-18); Bilirubin, Total 0.5 mg/dL (0.2-1.0); CO2 24.9 mmol/L (21.0-32.0); Calcium 9.1 mg/dL (8.5-10.1); Chloride 108 mmol/L (98-107); Estimated GFR 93.45 (mL/min/1.73m2); Glucose 106 mg/dL (74-106); Potassium 4.0 mmol/L (3.5-5.1); Sodium 143 mmol/L (136-145); Total Protein 7.2 g/dL (6.4-8.2)
[2025-04-15 19:24] LABS: CEA 1.6 ng/mL (See Note)
[2025-04-22] MEDS: Normal Saline Flush 10 ML SYR IVP (09:07)
[2025-04-22 09:10] LABS: Abs Immature Grans 0.01 10^3/uL (0.0-0.06); HCT 35.1 % (40.0-50.0); HGB 11.8 g/dL (13.5-17.5); Immature Grans % 0.4 %; MCH 33.8 pg (27.0-33.0); MCHC 33.6 % (32.0-36.0); MCV 101 fL (80-95); MPV 10.1 fL (8.0-11.0); Platelet Count 117 10^3/uL (130-400); RBC 3.49 10^6/uL (4.36-5.78); RDW 15.0 % (11.8-14.1); RDW-SD 55.5 fL; WBC 2.38 10^3/uL (4.4-10.8)
[2025-04-22 09:20] LABS: RBC Morphology Normal
[2025-04-22 09:25] LABS: ALT 22 U/L (16-63); AST 21 U/L (15-37); Albumin 3.5 g/dL (3.4-5.0); Alkaline Phosphatase 60 U/L (46-116); Anion Gap 4.8 mmol/L (3-11); BUN 11 mg/dL (7-18); Bilirubin, Total 0.6 mg/dL (0.2-1.0); CO2 30.2 mmol/L (21.0-32.0); Calcium 9.5 mg/dL (8.5-10.1); Chloride 108 mmol/L (98-107); Estimated GFR 90.18 (mL/min/1.73m2); Glucose 103 mg/dL (74-106); Potassium 3.9 mmol/L (3.5-5.1); Sodium 143 mmol/L (136-145); Total Protein 7.4 g/dL (6.4-8.2)
[2025-04-22 17:58] LABS: CEA 1.4 ng/mL (See Note)
== END 2025-04-22 23:59 | disposition home or self-care (01) ==
LOC: INF 08:30
PROVIDERS: Nurse Practitioner Family; PCP Physician Assistant; Visit Provider Internal Medicine Hematology & Oncology
DX: C20 Malignant neoplasm of rectum (principal); Z45.2 Encounter for adjustment and management of vascular access device
CPT/HCPCS: 36591; 80053; 96523; 82378; 85025

== ENCOUNTER 2025-05-21 00:57 | Outpatient (RCR) | payer MEDICARE, OTHER, SELFPAY ==
[2025-04-30 10:46] LABS: Abs Immature Grans 0.02 10^3/uL (0.0-0.06); HCT 36.3 % (40.0-50.0); HGB 12.4 g/dL (13.5-17.5); Immature Grans % 0.4 %; MCH 34.0 pg (27.0-33.0); MCHC 34.2 % (32.0-36.0); MCV 100 fL (80-95); MPV 9.5 fL (8.0-11.0); Platelet Count 123 10^3/uL (130-400); RBC 3.65 10^6/uL (4.36-5.78); RDW 14.3 % (11.8-14.1); RDW-SD 52.4 fL; WBC 4.57 10^3/uL (4.4-10.8)
[2025-04-30] MEDS: Normal Saline Flush 10 ML SYR IVP (10:51)
[2025-04-30 11:04] LABS: ALT 23 U/L (16-63); AST 22 U/L (15-37); Albumin 3.6 g/dL (3.4-5.0); Alkaline Phosphatase 62 U/L (46-116); Anion Gap 7.5 mmol/L (3-11); BUN 16 mg/dL (7-18); Bilirubin, Total 0.5 mg/dL (0.2-1.0); CO2 26.5 mmol/L (21.0-32.0); Calcium 9.4 mg/dL (8.5-10.1); Chloride 106 mmol/L (98-107); Estimated GFR 93.45 (mL/min/1.73m2); Glucose 113 mg/dL (74-106); Potassium 4.1 mmol/L (3.5-5.1); Sodium 140 mmol/L (136-145); Total Protein 7.8 g/dL (6.4-8.2)
[2025-04-30 19:11] LABS: CEA 1.3 ng/mL (See Note)
[2025-05-02 11:52] VITALS: BP 129/79; PULSE 82; RESP 17; TEMP 36.5; O2SAT 97
[2025-05-02] MEDS: Normal Saline Flush 10 ML SYR IVP (11:54)
[2025-05-18] MEDS: Normal Saline Flush 10 ML SYR IVP (09:12)
[2025-05-18 09:39] LABS: Abs Immature Grans 0.00 10^3/uL (0.0-0.06); HCT 36.2 % (40.0-50.0); HGB 11.9 g/dL (13.5-17.5); Immature Grans % 0.0 %; MCH 32.4 pg (27.0-33.0); MCHC 32.9 % (32.0-36.0); MCV 99 fL (80-95); MPV 10.0 fL (8.0-11.0); Platelet Count 117 10^3/uL (130-400); RBC 3.67 10^6/uL (4.36-5.78); RDW 14.4 % (11.8-14.1); RDW-SD 52.2 fL; WBC 2.62 10^3/uL (4.4-10.8)
[2025-05-18 09:55] LABS: ALT 23 U/L (16-63); AST 24 U/L (15-37); Albumin 3.6 g/dL (3.4-5.0); Alkaline Phosphatase 59 U/L (46-116); Anion Gap 5.6 mmol/L (3-11); BUN 9 mg/dL (7-18); Bilirubin, Total 0.5 mg/dL (0.2-1.0); CO2 29.4 mmol/L (21.0-32.0); Calcium 9.3 mg/dL (8.5-10.1); Chloride 106 mmol/L (98-107); Estimated GFR 92.87 (mL/min/1.73m2); Glucose 115 mg/dL (74-106); Potassium 4.2 mmol/L (3.5-5.1); Sodium 141 mmol/L (136-145); Total Protein 7.4 g/dL (6.4-8.2)
[2025-05-18 10:26] LABS: RBC Morphology Normal
[2025-05-18 18:58] LABS: CEA 1.3 ng/mL (See Note)
[2025-05-21] MEDS: Normal Saline Flush 10 ML SYR IVP (09:19)
[2025-05-21 09:29] LABS: Abs Immature Grans 0.01 10^3/uL (0.0-0.06); HCT 37.7 % (40.0-50.0); HGB 12.6 g/dL (13.5-17.5); Immature Grans % 0.3 %; MCH 33.0 pg (27.0-33.0); MCHC 33.4 % (32.0-36.0); MCV 99 fL (80-95); MPV 9.7 fL (8.0-11.0); Platelet Count 140 10^3/uL (130-400); RBC 3.82 10^6/uL (4.36-5.78); RDW 14.5 % (11.8-14.1); RDW-SD 53.2 fL; WBC 3.29 10^3/uL (4.4-10.8)
[2025-05-21 09:41] LABS: ALT 23 U/L (16-63); AST 25 U/L (15-37); Albumin 3.7 g/dL (3.4-5.0); Alkaline Phosphatase 56 U/L (46-116); Anion Gap 6.1 mmol/L (3-11); BUN 12 mg/dL (7-18); Bilirubin, Total 0.7 mg/dL (0.2-1.0); CO2 28.9 mmol/L (21.0-32.0); Calcium 9.5 mg/dL (8.5-10.1); Chloride 105 mmol/L (98-107); Estimated GFR 89.62 (mL/min/1.73m2); Glucose 102 mg/dL (74-106); Potassium 4.0 mmol/L (3.5-5.1); Sodium 140 mmol/L (136-145); Total Protein 7.7 g/dL (6.4-8.2)
[2025-05-21 10:01] LABS: RBC Morphology Normal
[2025-05-21 18:54] LABS: CEA 1.1 ng/mL (See Note)
== END 2025-05-23 23:59 | disposition home or self-care (01) ==
LOC: INF 00:57
PROVIDERS: Nurse Practitioner Family; PCP Physician Assistant; Visit Provider Internal Medicine Hematology & Oncology
DX: C20 Malignant neoplasm of rectum (principal); Z45.2 Encounter for adjustment and management of vascular access device
CPT/HCPCS: 36591; 80053; 96523; 82378; 85025

== ENCOUNTER 2025-06-22 02:34 | Outpatient (RCR) | payer MEDICARE, OTHER, SELFPAY ==
[2025-05-27] MEDS: Normal Saline Flush 10 ML SYR IVP (12:26)
[2025-05-27 12:29] LABS: Abs Immature Grans 0.02 10^3/uL (0.0-0.06); HCT 36.8 % (40.0-50.0); HGB 12.2 g/dL (13.5-17.5); Immature Grans % 0.5 %; MCH 32.4 pg (27.0-33.0); MCHC 33.2 % (32.0-36.0); MCV 98 fL (80-95); MPV 9.6 fL (8.0-11.0); Platelet Count 133 10^3/uL (130-400); RBC 3.77 10^6/uL (4.36-5.78); RDW 14.2 % (11.8-14.1); RDW-SD 50.9 fL; WBC 4.39 10^3/uL (4.4-10.8)
[2025-05-27 12:44] LABS: ALT 23 U/L (16-63); AST 21 U/L (15-37); Albumin 3.5 g/dL (3.4-5.0); Alkaline Phosphatase 57 U/L (46-116); Anion Gap 2.0 mmol/L (3-11); BUN 20 mg/dL (7-18); Bilirubin, Total 0.5 mg/dL (0.2-1.0); CO2 30.0 mmol/L (21.0-32.0); Calcium 9.2 mg/dL (8.5-10.1); Chloride 107 mmol/L (98-107); Glucose 104 mg/dL (74-106); Potassium 4.0 mmol/L (3.5-5.1); Sodium 139 mmol/L (136-145); Total Protein 7.4 g/dL (6.4-8.2)
[2025-05-27 22:15] LABS: CEA 0.8 ng/mL (See Note)
[2025-06-22] MEDS: Normal Saline Flush 10 ML SYR IVP (12:29)
[2025-06-22 12:36] LABS: Abs Immature Grans 0.02 10^3/uL (0.0-0.06); HCT 37.4 % (40.0-50.0); HGB 12.4 g/dL (13.5-17.5); Immature Grans % 0.5 %; MCH 32.6 pg (27.0-33.0); MCHC 33.2 % (32.0-36.0); MCV 98 fL (80-95); MPV 9.8 fL (8.0-11.0); Platelet Count 114 10^3/uL (130-400); RBC 3.80 10^6/uL (4.36-5.78); RDW 14.6 % (11.8-14.1); RDW-SD 53.0 fL; WBC 3.80 10^3/uL (4.4-10.8)
[2025-06-22 12:54] LABS: ALT 23 U/L (16-63); AST 25 U/L (15-37); Albumin 3.4 g/dL (3.4-5.0); Alkaline Phosphatase 59 U/L (46-116); Anion Gap 7.7 mmol/L (3-11); BUN 20 mg/dL (7-18); Bilirubin, Total 0.4 mg/dL (0.2-1.0); CO2 27.3 mmol/L (21.0-32.0); Calcium 8.8 mg/dL (8.5-10.1); Chloride 107 mmol/L (98-107); Glucose 108 mg/dL (74-106); Potassium 4.1 mmol/L (3.5-5.1); Sodium 142 mmol/L (136-145); Total Protein 7.7 g/dL (6.4-8.2)
[2025-06-22 22:29] LABS: CEA 1.2 ng/mL (See Note)
== END 2025-06-22 23:59 | disposition home or self-care (01) ==
LOC: INF 02:34
PROVIDERS: PCP Physician Assistant; Visit Provider Internal Medicine Hematology & Oncology
DX: C20 Malignant neoplasm of rectum (principal); Z45.2 Encounter for adjustment and management of vascular access device
CPT/HCPCS: 36591; 80053; 82378; 85025